=== PATIENT | female | born 1965 | race Caucasian/White ===

== ENCOUNTER 2019-01-16 09:10 | Day surgery (SDC) | payer MEDICARE, MEDICAID ==
[~2019-01-16] VITALS: Ht 165.1 cm; Wt 78.7 kg
[2019-01-16] MEDS ORDERED: LIDOcaine 1% 30ml preserv. free vial SQ STA (09:38)
[2019-01-16] MEDS ORDERED: clonazePAM 0.5mg tablet PO ONE (10:20)
--- NOTE | 2019-01-16 11:00 | NUR ---
LAURO GEORGES PRODUCE FIELD MERCHANDISER ASSESSED FOR PLEURAL FLUID WITH ULTRASOUND. NO FLUID ACCUMULATION WARRANTING DRAINAGE. NO PARACENTESIS PERFORMED. PT DISCHARGED TO HOSPITAL ENTRANCE AND WAS DISCHARGED BACK TO HER FACILITY. PT HAD ALL BELONGINGS.
== END 2019-01-16 11:00 | disposition home or self-care (01) ==
LOC: SSTAY O 09:10
PROVIDERS: ATTEND Radiology Diagnostic Radiology
DX: J90 Pleural effusion, not elsewhere classified (principal); Z53.8 Procedure and treatment not carried out for other reasons; Z88.8 Allergy status to other drugs, medicaments and biological substances
CPT/HCPCS: J3490

== ENCOUNTER 2022-07-23 17:33 | Inpatient (IN) | payer MEDICARE, MEDICAID ==
[~2022-07-23] VITALS: Ht 167.6 cm; Wt 75.0 kg
[2022-07-23] MEDS ORDERED: normal saline 1000ML IV soln IV ONE (19:30)
--- NOTE | 2022-07-23 19:35 | NUR ---
pt has been evaluated by provider, taken to restroom in wheelchair, going to xray now
[2022-07-23 20:18] LABS: LYMPHOCYTES # (AUTO) 0.3 X10'3 (1.1-4.8); MEAN PLATELET VOLUME 8.6 FL (7.4-10.4); MONOCYTES # (AUTO) 0.7 X10'3 (0-0.9)
[2022-07-23 20:20] LABS: BASOPHILS % (AUTO) 0.1 % (0-1); EOSINOPHILS % (AUTO) 0.8 % (0-6); HEMATOCRIT 28.5 % (35.0-45.0); HEMOGLOBIN 9.8 g/dl (12.0-16.0); LYMPHOCYTES % (AUTO) 6.3 % (21-51); MEAN CORPUSCULAR HGB CONC 34.4 g/dL (33.0-36.5); MEAN CORPUSCULAR VOLUME 87.1 FL (78-98); MONOCYTES % (AUTO) 17.7 % (2-12); NEUTROPHILS # (AUTO) 3.1 X10'3 (1.8-7.7); NEUTROPHILS % (AUTO) 75.1 % (42-75); PLATELET COUNT 95 X10'3 (140-440); RED BLOOD COUNT 3.27 X10'6 (4.20-5.60); RED CELL DISTRIBUTION WIDTH 12.7 % (11.5-14.5); WHITE BLOOD COUNT 4.1 X10'3 (4.5-11.0)
[2022-07-23 20:25] LABS: ALANINE AMINOTRANSFERASE 30 U/L (12-78); ALBUMIN 2.6 G/DL (3.4-5.0); ALBUMIN/GLOBULIN RATIO 0.7 (1.1-1.5); ALKALINE PHOSPHATASE 92 IU/L (46-116); ANION GAP 10 (8-16); ASPARTATE AMINO TRANSFERASE 38 U/L (10-37); BILIRUBIN,TOTAL 0.7 MG/DL (0.1-1.0); BLOOD UREA NITROGEN 24 MG/DL (7-18); CALCIUM 8.4 MG/DL (8.5-10.1); CHLORIDE 102 MMOL/L (99-107); GLUCOSE 120 MG/DL (70-104); MAGNESIUM 1.8 MG/DL (1.5-2.4); POTASSIUM 3.3 MMOL/L (3.5-5.1); SODIUM 136 MMOL/L (135-145); TOTAL CARBON DIOXIDE 23.6 MMOL/L (24-32); TOTAL PROTEIN 6.4 G/DL (6.4-8.2); eGFR 36 ML/MIN
[2022-07-23 20:38] LABS: CLARITY,URINE SLIGHTLY CLOUDY (Clear); COLOR,URINE YELLOW (Yellow); GLUCOSE, URINE NEGATIVE (Neg); KETONES,URINE TRACE mg/dl (Neg); LEUKOCYTE ESTERASE ,URINE LARGE (Neg); NITRITES, URINE POSITIVE (Neg); OCCULT BLOOD,URINE SMALL (Neg); PROTEIN,URINE TRACE mg/dl (Neg); UROBILINOGEN,URINE 0.2 E.U/dL (0.2-1.0)
[2022-07-23 20:49] LABS: UA COLLECTION TYPE NON-SPECIFIED
[2022-07-23 20:54] LABS: BACTERIA,URINE 4+ /HPF (Neg); RBC,URINE 0-2 /HPF (0-2); SQUAMOUS EPITHELIAL CELL,UR FEW /LPF (FEW); WBC,URINE TNTC /HPF (0-4)
[2022-07-23 21:10] LABS: TOTAL CELLS COUNTED 100
[2022-07-23 21:11] LABS: PLATELET ESTIMATE DECREASED
[2022-07-23] MEDS ORDERED: CefTRIAXone 2gm/D5W 50ml BAG 50 ML IV ONE (21:20)
[2022-07-23] MEDS ORDERED: mag hydrox/Alum hydrox/simeth 30ml oral suspension PO PRN (22:05)
[2022-07-23] MEDS ORDERED: magnesium 2GM in 50ml NS 50 ML IV PRN (22:05)
[2022-07-23] MEDS ORDERED: magnesium 4gm in 100ml NS 100 ML IV PRN (22:05)
[2022-07-23] MEDS ORDERED: potassium CL 10mEq/100ml bag 100 ML IV PRN (22:05)
[2022-07-23] MEDS ORDERED: POTASSIUM BICARB 20meq eff tab 20 MEQ TABLET.EFF PO PRN (22:05)
[2022-07-23] MEDS ORDERED: magnesium hydroxide 30ml (MOM) UD suspension PO PRN (22:05)
[2022-07-23] MEDS ORDERED: ondansetron/PF 4mg/2ml inj IV PRN (22:05)
[2022-07-23] MEDS ORDERED: magnesium Cl slow-release 64mg tablet PO PRN (22:05)
[2022-07-23] MEDS ORDERED: acetaminophen 325mg tablet PO PRN (22:05)
[2022-07-23] MEDS ORDERED: LEVO100T PO (22:38)
[2022-07-23] MEDS ORDERED: NAPR-56 PO (22:38)
[2022-07-23] MEDS ORDERED: OMEP20CA16 PO (22:38)
[2022-07-23] MEDS ORDERED: PSYL575P22 PO (22:38)
[2022-07-23] MEDS ORDERED: ALBU18HF2 INH (22:38)
[2022-07-23] MEDS ORDERED: GABA-530 PO ×2 (22:38)
[2022-07-23] MEDS ORDERED: RISP2TAB97 PO (22:38)
[2022-07-23] MEDS ORDERED: ACET-890 PO (22:38)
[2022-07-23] MEDS ORDERED: MELO-100 PO (22:38)
[2022-07-23] MEDS ORDERED: FLUO40CA10 PO (22:38)
[2022-07-23] MEDS ORDERED: OLAN5TAB5 PO (22:38)
[2022-07-23] MEDS ORDERED: LAMO100T65 PO ×2 (22:38)
[2022-07-23] MEDS ORDERED: PROP10TA10 PO (22:38)
[2022-07-23] MEDS ORDERED: FLUT16SP2 BOTHNARES (22:38)
[2022-07-23] MEDS ORDERED: TRIH2TAB3 PO (22:38)
[2022-07-23] MEDS ORDERED: MULT-1085 PO (22:38)
[2022-07-24 02:37] VITALS: BP 111/68
[2022-07-24 06:00] VITALS: BP 97/52
[2022-07-24 06:18] LABS: BASOPHILS % (AUTO) 0.3 % (0-1); EOSINOPHILS % (AUTO) 0.2 % (0-6); HEMATOCRIT 29.3 % (35.0-45.0); HEMOGLOBIN 10.1 g/dl (12.0-16.0); LYMPHOCYTES # (AUTO) 0.2 X10'3 (1.1-4.8); LYMPHOCYTES % (AUTO) 3.6 % (21-51); MEAN CORPUSCULAR HEMOGLOBIN 29.9 PG (27.0-31.0); MEAN CORPUSCULAR HGB CONC 34.4 g/dL (33.0-36.5); MEAN CORPUSCULAR VOLUME 86.8 FL (78-98); MEAN PLATELET VOLUME 8.4 FL (7.4-10.4); MONOCYTES # (AUTO) 0.6 X10'3 (0-0.9); MONOCYTES % (AUTO) 12.3 % (2-12); NEUTROPHILS # (AUTO) 4.3 X10'3 (1.8-7.7); NEUTROPHILS % (AUTO) 83.6 % (42-75); PLATELET COUNT 92 X10'3 (140-440); RED BLOOD COUNT 3.38 X10'6 (4.20-5.60); RED CELL DISTRIBUTION WIDTH 13.1 % (11.5-14.5); WHITE BLOOD COUNT 5.2 X10'3 (4.5-11.0)
--- NOTE | 2022-07-24 06:24 | NUR ---
Patient in room ORTHO 4016. I have received report from TIMO Gibson and had the opportunity to ask questions and assume patient care.
[2022-07-24 06:36] LABS: ALANINE AMINOTRANSFERASE 27 U/L (12-78); ALBUMIN 2.3 G/DL (3.4-5.0); ALBUMIN/GLOBULIN RATIO 0.6 (1.1-1.5); ALKALINE PHOSPHATASE 93 IU/L (46-116); ANION GAP 10 (8-16); ASPARTATE AMINO TRANSFERASE 34 U/L (10-37); BILIRUBIN,TOTAL 0.6 MG/DL (0.1-1.0); BLOOD UREA NITROGEN 17 MG/DL (7-18); CHLORIDE 106 MMOL/L (99-107); CREATININE 1.21 MG/DL (0.40-0.90); GLUCOSE 153 MG/DL (70-104); MAGNESIUM 1.8 MG/DL (1.5-2.4); POTASSIUM 3.2 MMOL/L (3.5-5.1); SODIUM 139 MMOL/L (135-145); TOTAL CARBON DIOXIDE 23.1 MMOL/L (24-32); TOTAL PROTEIN 6.1 G/DL (6.4-8.2); eGFR 46 ML/MIN
[2022-07-24] MEDS: K and/or MAG REPLACEMENT MC SCH ×2 (08:00→20:00)
[2022-07-24] MEDS: heparin, porcine 5000 units/ml vial SQ SCH ×2 (08:00→20:41)
[2022-07-24] MEDS: docusate sod 100mg capsule PO SCH ×2 (09:06→20:00)
[2022-07-24] MEDS: POTASSIUM BICARB 20meq eff tab 20 MEQ TABLET.EFF PO PRN ×2 (09:19→15:08)
[2022-07-24 10:00] VITALS: BP 98/61
[2022-07-24] MEDS ORDERED: naproxen 500mg tablet PO PRN (10:30)
[2022-07-24] MEDS: HYDROcodone/acetaminophen 5mg/325mg tablet PO PRN ×2 (10:44→20:39)
[2022-07-24] MEDS: propranolol 10mg tablet PO SCH ×2 (13:00→20:35)
--- NOTE | 2022-07-24 16:57 | NUR ---
PAGER ID: [phone] MESSAGE: Patient in room 4016, Shannen Prince has an order for meloxican 7.5mg which is not stocked in pharmacy. [facility] ([facility]) states patient only takes the medication sometimes. Would you like to DC medication? Alyssa [phone]
--- NOTE | 2022-07-24 16:57 | NUR ---
Per Kasia at [facility] who takes care of patient, we can contact her at [phone] or [phone] if we need information for patient.
[2022-07-24 18:00] VITALS: BP 112/63
--- NOTE | 2022-07-24 18:24 | NUR ---
Problems reprioritized. Patient report given, questions answered & plan of care reviewed with TIMO Gibson.
--- NOTE | 2022-07-24 18:48 | NUR ---
I have reviewed and agree with all interventions, assessments performed, and documention by Alyssa Lopez LVN.
[2022-07-24] MEDS ORDERED: trihexyphenidyl 2mg tablet PO SCH (20:00)
[2022-07-24] MEDS: gabapentin 100mg capsule PO SCH (20:37)
[2022-07-24] MEDS: lamoTRIgine 100mg tablet PO SCH (20:37)
[2022-07-24] MEDS: CefTRIAXone/D5W-Rocephin 1gm 50 ML IV SCH (20:39)
[2022-07-24] MEDS: trihexyphenidyl HCL 5 MG tablet PO SCH (20:39)
[2022-07-24] MEDS: psyllium seed 3.4 gm packet PO SCH (20:42)
[2022-07-24 22:00] VITALS: BP 103/58
--- NOTE | 2022-07-24 22:58 | NUR ---
Student documentation: I have reviewed interventions, assessments performed and documented by Lb Monsalve [facility].
[2022-07-25] MEDS: HYDROcodone/acetaminophen 5mg/325mg tablet PO PRN ×3 (05:51→20:59)
[2022-07-25 06:00] VITALS: BP 111/59
[2022-07-25 06:09] LABS: BASOPHILS % (AUTO) 0.4 % (0-1); EOSINOPHILS # (AUTO) 0.1 X10'3 (0-0.9); EOSINOPHILS % (AUTO) 2.8 % (0-6); HEMATOCRIT 28.7 % (35.0-45.0); HEMOGLOBIN 9.9 g/dl (12.0-16.0); LYMPHOCYTES # (AUTO) 0.4 X10'3 (1.1-4.8); LYMPHOCYTES % (AUTO) 8.2 % (21-51); MEAN CORPUSCULAR HEMOGLOBIN 29.8 PG (27.0-31.0); MEAN CORPUSCULAR HGB CONC 34.5 g/dL (33.0-36.5); MEAN CORPUSCULAR VOLUME 86.3 FL (78-98); MONOCYTES # (AUTO) 0.5 X10'3 (0-0.9); MONOCYTES % (AUTO) 12.1 % (2-12); NEUTROPHILS # (AUTO) 3.3 X10'3 (1.8-7.7); NEUTROPHILS % (AUTO) 76.5 % (42-75); PLATELET COUNT 115 X10'3 (140-440); RED BLOOD COUNT 3.33 X10'6 (4.20-5.60); RED CELL DISTRIBUTION WIDTH 13.8 % (11.5-14.5); WHITE BLOOD COUNT 4.3 X10'3 (4.5-11.0)
[2022-07-25 06:15] LABS: ALANINE AMINOTRANSFERASE 27 U/L (12-78); ALBUMIN/GLOBULIN RATIO 0.5 (1.1-1.5); ALKALINE PHOSPHATASE 99 IU/L (46-116); ANION GAP 11 (8-16); ASPARTATE AMINO TRANSFERASE 33 U/L (10-37); BILIRUBIN,TOTAL 0.5 MG/DL (0.1-1.0); BLOOD UREA NITROGEN 14 MG/DL (7-18); BUN/CREATININE RATIO 13.1 (6.6-38.0); CALCIUM 8.3 MG/DL (8.5-10.1); CHLORIDE 105 MMOL/L (99-107); CREATININE 1.07 MG/DL (0.40-0.90); GLUCOSE 95 MG/DL (70-104); MAGNESIUM 1.8 MG/DL (1.5-2.4); POTASSIUM 3.5 MMOL/L (3.5-5.1); SODIUM 142 MMOL/L (135-145); TOTAL CARBON DIOXIDE 26.1 MMOL/L (24-32); eGFR 53 ML/MIN
--- NOTE | 2022-07-25 06:29 | NUR ---
Patient in room ORTHO 4013. I have received report from TIMO Gibson and had the opportunity to ask questions and assume patient care.
[2022-07-25] MEDS: K and/or MAG REPLACEMENT MC SCH ×2 (08:00→20:00)
[2022-07-25] MEDS ORDERED: pantoprazole 40mg Tablet.DR PO SCH (08:00)
[2022-07-25] MEDS ORDERED: MELOXICAM 7.5 MG PO SCH (08:00)
[2022-07-25] MEDS: docusate sod 100mg capsule PO SCH ×2 (08:00→20:59)
[2022-07-25] MEDS: lamoTRIgine 100mg tablet PO SCH ×2 (08:54→21:00)
[2022-07-25] MEDS: levoTHYROXINE 100mcg tablet PO SCH (08:54)
[2022-07-25] MEDS: trihexyphenidyl HCL 5 MG tablet PO SCH ×2 (08:55→20:56)
[2022-07-25] MEDS: multivitamins, therapeutics tablet PO SCH (08:55)
[2022-07-25] MEDS: FLUoxetine 20mg capsule PO SCH (08:55)
[2022-07-25] MEDS: heparin, porcine 5000 units/ml vial SQ SCH ×2 (08:56→21:11)
[2022-07-25 10:14] VITALS: BP 104/55
[2022-07-25] MEDS: OLANZapine 5mg rapidly disint. tablet PO SCH (10:18)
[2022-07-25] MEDS: gabapentin 100mg capsule PO SCH ×2 (10:18→21:01)
[2022-07-25] MEDS: propranolol 10mg tablet PO SCH ×3 (10:18→21:00)
[2022-07-25] MEDS: risperiDONE 2mg tablet PO SCH (10:18)
--- NOTE | 2022-07-25 17:10 | NUR ---
During pain assessment, patient did not understand pain scale immediately. After explanation, she still did not appear to grasp the scale, stating that her pain was "50/50." Pain scale was explained again and patient stated a 5/10 rating. but was unable to describe the pain.
[2022-07-25 18:00] VITALS: BP 124/73
--- NOTE | 2022-07-25 18:39 | NUR ---
Problems reprioritized. Patient report given, questions answered & plan of care reviewed with Ni Gonzalez RN.
--- NOTE | 2022-07-25 18:40 | NUR ---
Patient in room ORTHO 4013. I have received report from TIMO Shah and had the opportunity to ask questions and assume patient care. Patient is sitting up eating dinner and in no obvious distress. I will continue to monitor.
--- NOTE | 2022-07-25 18:52 | NUR ---
FAMILY NURSE PRACTITIONER documentation: I have reviewed and agree with all interventions, assessments performed and documented by Alyssa GREENWOOD.
[2022-07-25] MEDS: psyllium seed 3.4 gm packet PO SCH (21:01)
[2022-07-25] MEDS: CefTRIAXone/D5W-Rocephin 1gm 50 ML IV SCH (21:17)
--- NOTE | 2022-07-25 21:17 | NUR ---
Medications administered late due to technical difficulties.
[2022-07-25 22:00] VITALS: BP 121/71
--- NOTE | 2022-07-25 23:23 | NUR ---
I have observed Luiza SCOTT administer medications and have reviewed her charting. John Sood RN
[2022-07-26] VITALS (19 sets, daily range): BP systolic 120–168; BP diastolic 72–97
[2022-07-26] MEDS: HYDROcodone/acetaminophen 5mg/325mg tablet PO PRN (05:18)
[2022-07-26 05:58] LABS: BASOPHILS % (AUTO) 0.5 % (0-1); EOSINOPHILS # (AUTO) 0.1 X10'3 (0-0.9); EOSINOPHILS % (AUTO) 3.8 % (0-6); HEMATOCRIT 30.2 % (35.0-45.0); HEMOGLOBIN 10.4 g/dl (12.0-16.0); LYMPHOCYTES # (AUTO) 0.5 X10'3 (1.1-4.8); LYMPHOCYTES % (AUTO) 13.3 % (21-51); MEAN CORPUSCULAR HGB CONC 34.4 g/dL (33.0-36.5); MEAN CORPUSCULAR VOLUME 87.2 FL (78-98); MEAN PLATELET VOLUME 8.1 FL (7.4-10.4); MONOCYTES # (AUTO) 0.4 X10'3 (0-0.9); MONOCYTES % (AUTO) 11.5 % (2-12); NEUTROPHILS # (AUTO) 2.5 X10'3 (1.8-7.7); NEUTROPHILS % (AUTO) 70.9 % (42-75); PLATELET COUNT 136 X10'3 (140-440); RED BLOOD COUNT 3.46 X10'6 (4.20-5.60); RED CELL DISTRIBUTION WIDTH 13.6 % (11.5-14.5); WHITE BLOOD COUNT 3.5 X10'3 (4.5-11.0)
--- NOTE | 2022-07-26 06:22 | NUR ---
Problems reprioritized. Patient report given, questions answered & plan of care reviewed with TIMO Shah.
[2022-07-26 06:31] LABS: ALANINE AMINOTRANSFERASE 25 U/L (12-78); ALBUMIN 2.1 G/DL (3.4-5.0); ALBUMIN/GLOBULIN RATIO 0.5 (1.1-1.5); ALKALINE PHOSPHATASE 105 IU/L (46-116); ANION GAP 10 (8-16); ASPARTATE AMINO TRANSFERASE 31 U/L (10-37); BILIRUBIN,TOTAL 0.5 MG/DL (0.1-1.0); BLOOD UREA NITROGEN 8 MG/DL (7-18); BUN/CREATININE RATIO 7.7 (6.6-38.0); CALCIUM 8.5 MG/DL (8.5-10.1); CHLORIDE 106 MMOL/L (99-107); CREATININE 1.04 MG/DL (0.40-0.90); GLUCOSE 92 MG/DL (70-104); MAGNESIUM 2.1 MG/DL (1.5-2.4); SODIUM 141 MMOL/L (135-145); TOTAL CARBON DIOXIDE 25.3 MMOL/L (24-32); TOTAL PROTEIN 6.2 G/DL (6.4-8.2); eGFR 55 ML/MIN
--- NOTE | 2022-07-26 07:06 | NUR ---
Patient in room ORTHO 4013. I have received report from TIMO Dan and had the opportunity to ask questions and assume patient care.
[2022-07-26] MEDS: gabapentin 100mg capsule PO SCH ×2 (07:30→22:30)
[2022-07-26] MEDS: K and/or MAG REPLACEMENT MC SCH ×2 (08:00→20:00)
[2022-07-26] MEDS: trihexyphenidyl HCL 5 MG tablet PO SCH ×2 (09:24→22:31)
[2022-07-26] MEDS: docusate sod 100mg capsule PO SCH ×2 (09:28→19:47)
[2022-07-26] MEDS: propranolol 10mg tablet PO SCH ×3 (09:28→22:30)
[2022-07-26] MEDS: lamoTRIgine 100mg tablet PO SCH ×2 (09:29→22:30)
[2022-07-26] MEDS: pantoprazole 40mg Tablet.DR PO SCH (09:30)
[2022-07-26] MEDS: FLUoxetine 20mg capsule PO SCH (09:31)
[2022-07-26] MEDS: risperiDONE 2mg tablet PO SCH (09:32)
[2022-07-26] MEDS: levoTHYROXINE 100mcg tablet PO SCH (09:33)
[2022-07-26] MEDS: multivitamins, therapeutics tablet PO SCH (09:34)
[2022-07-26] MEDS: OLANZapine 5mg rapidly disint. tablet PO SCH (09:34)
[2022-07-26] MEDS: heparin, porcine 5000 units/ml vial SQ SCH ×2 (09:36→19:48)
[2022-07-26] MEDS ORDERED: BUPIVAcaine/PF 2.5 mg/ml (0.25%) 30ml vial ONE (12:39)
[2022-07-26] MEDS ORDERED: bacitracin 15gm ointment TP ONE ×2 (12:39→14:34)
[2022-07-26] MEDS ORDERED: ceFAZolin inj. 2,000 MG in dextrose 5%-water 100 ML IV ONE (13:35)
[2022-07-26] MEDS ORDERED: ketorolac trometh. 30mg/ml inj. IV ONE (13:40)
[2022-07-26] MEDS ORDERED: ringers solution, lacted 1,000 ML IV SCH (13:40)
[2022-07-26] MEDS ORDERED: ondansetron/PF 4mg/2ml inj IV PRN ×2 (13:40→15:00)
[2022-07-26] MEDS ORDERED: meperidine/PF 25mg/ml syringe IV PRN (13:40)
[2022-07-26] MEDS ORDERED: morphine 2 MG/ML inj. syringe IV PRN (13:40)
[2022-07-26] MEDS ORDERED: morphine 4 MG/ML inj SYRINge IV PRN (13:40)
[2022-07-26] MEDS ORDERED: acetaminophen 1,000mg/100ml IV 100 ML IV PRN (13:40)
[2022-07-26] MEDS ORDERED: fentaNYL/PF 50MCG/1 ML 2ML syringe IV PRN ×2 (13:40)
[2022-07-26] MEDS ORDERED: fentaNYL/PF 50MCG/1 ML 2ML syringe ONE (13:59)
[2022-07-26] MEDS ORDERED: midazolam 1 mg/ML 2ml injection ONE (13:59)
[2022-07-26] MEDS ORDERED: ceFAZolin 1000mg inj ONE ×2 (14:22)
[2022-07-26] MEDS ORDERED: LIDOcaine 2% (20mg/ml) 5ml vial ONE (14:23)
[2022-07-26] MEDS ORDERED: ROPIVAcaine 0.5% (5mg/ml) 30ml vial ONE (14:23)
[2022-07-26] MEDS ORDERED: propofol inj 20 ML IV ONE (14:23)
[2022-07-26] MEDS ORDERED: dexamethasone sod phosphate 4mg/ml inj. ONE (14:23)
[2022-07-26] MEDS ORDERED: ondansetron/PF 4mg/2ml inj ONE (14:56)
[2022-07-26] MEDS ORDERED: acetaminophen 325mg tablet PO PRN (15:00)
[2022-07-26] MEDS ORDERED: diphenhydrAMINE 25mg capsule PO PRN ×2 (15:00)
[2022-07-26] MEDS ORDERED: magnesium hydroxide 30ml (MOM) UD suspension PO PRN (15:00)
[2022-07-26] MEDS ORDERED: bisacodyl 10mg suppository rectal RC PRN (15:00)
[2022-07-26] MEDS ORDERED: naloxone 0.4 mg/ml inj IV PRN (15:00)
--- NOTE | 2022-07-26 15:20 | NUR ---
Received from OR via HOSPITAL BED, accompanied by Anesthesiologist DR QUEZADA and report given by Anesthesiolgist. PT IS GROGGY BUT RESPONDS TO VERBAL STIMULI. PT PLACED ON BEDSIDE MONITOR, VSS. PT IN SR WITH RATE IN 60'S. BP IS 130'S/70'S. PT HAS DRSG/SPLINT WITH ELIZABETH WRAP TO LT FOOT/ANKLE AND LEG IS ELEVATED. PT HAS 20G PIV TO RT AC ANND 20G PIV TO RT HAND WITH LR INFUSING TO PIV IN RT HAND AT 100ML/HR. PT RESTING COMFORTABLY AT THIS TIME WITH NO S/S OF DISTRESS NOTED AT THIS TIME, WILL CONTINUE TO ASSESS.
--- NOTE | 2022-07-26 17:10 | NUR ---
PATIENT HAS MET ALL CRITERIA FOR TRANSFER TO THE ORTHO FLOOR. VSS. DRESSINGS INTACT. BED LOW, CALL LIGHT PRESENT AND 2 RAILS UP. RN PRESENT TO ACCEPT CARE OF PATIENT AND REPORT HAS BEEN CALLED TO ELENI GREENWOOD. ALL QUESTIONS ANSWERED TO ACCEPTING RN.
--- NOTE | 2022-07-26 17:44 | NUR ---
Patient return to ortho floor at approximately 1720 from recovery. Awake and has a soft cast splint to left lower extremity and denies pain.
--- NOTE | 2022-07-26 18:00 | NUR ---
WAREHOUSEMAN documentation: I have reviewed and agree with all interventions, assessments performed and documented by Alyssa Vance LVN.
--- NOTE | 2022-07-26 18:30 | NUR ---
Patient in room ORTHO 4010. I have received report from Alyssa GREENWOOD and had the opportunity to ask questions and assume patient care. Addendum: 07/26/22 at 1847 by Diane Stevens RN Amended: Links added.
--- NOTE | 2022-07-26 18:48 | NUR ---
Problems reprioritized. Patient report given, questions answered & plan of care reviewed with TIMO Contreras.
[2022-07-26] MEDS: normal saline 1000ml 1,000 ML IV SCH ×2 (19:46→20:15)
[2022-07-26] MEDS: HYDROcodone/acetaminophen 10/325mg tab PO PRN (20:12)
[2022-07-26] MEDS: sennosides 8.6mg tablet PO SCH (21:00)
[2022-07-26] MEDS: psyllium seed 3.4 gm packet PO SCH (22:29)
[2022-07-26] MEDS: CefTRIAXone/D5W-Rocephin 1gm 50 ML IV SCH (22:29)
[2022-07-26] MEDS: potassium cl 20mEq in 1/2 NS 1,000 ML IV SCH (22:51)
[2022-07-27 02:00] VITALS: BP 122/75
[2022-07-27] MEDS: normal saline 1000ml 1,000 ML IV SCH ×2 (02:55→10:14)
[2022-07-27] MEDS: HYDROcodone/acetaminophen 10/325mg tab PO PRN ×3 (05:53→23:14)
[2022-07-27 06:00] VITALS: BP 157/85
[2022-07-27] MEDS: potassium cl 20mEq in 1/2 NS 1,000 ML IV SCH ×3 (06:32→19:32)
--- NOTE | 2022-07-27 06:40 | NUR ---
Problems reprioritized. Patient report given, questions answered & plan of care reviewed with Buffy GREENWOOD. Addendum: 07/27/22 at 0722 by Diane Stevens RN Amended: Links added.
[2022-07-27] MEDS: gabapentin 100mg capsule PO SCH ×2 (07:30→21:43)
[2022-07-27] MEDS: FLUoxetine 20mg capsule PO SCH (08:00)
[2022-07-27] MEDS: pantoprazole 40mg Tablet.DR PO SCH (08:00)
[2022-07-27] MEDS: trihexyphenidyl HCL 5 MG tablet PO SCH ×2 (08:00→21:40)
[2022-07-27] MEDS: propranolol 10mg tablet PO SCH ×3 (08:00→21:00)
[2022-07-27] MEDS: risperiDONE 2mg tablet PO SCH (08:00)
[2022-07-27] MEDS: heparin, porcine 5000 units/ml vial SQ SCH ×2 (08:00→21:30)
[2022-07-27] MEDS: levoTHYROXINE 100mcg tablet PO SCH (08:00)
[2022-07-27] MEDS: docusate sod 100mg capsule PO SCH ×2 (08:00→20:00)
[2022-07-27] MEDS: OLANZapine 5mg rapidly disint. tablet PO SCH (08:00)
[2022-07-27] MEDS: multivitamins, therapeutics tablet PO SCH (08:00)
[2022-07-27] MEDS: lamoTRIgine 100mg tablet PO SCH ×2 (08:00→21:42)
[2022-07-27] MEDS: K and/or MAG REPLACEMENT MC SCH ×2 (08:00→20:00)
[2022-07-27 09:26] LABS: BASOPHILS % (AUTO) 0.2 % (0-1); EOSINOPHILS % (AUTO) 0.1 % (0-6); HEMATOCRIT 33.1 % (35.0-45.0); HEMOGLOBIN 11.2 g/dl (12.0-16.0); LYMPHOCYTES # (AUTO) 0.6 X10'3 (1.1-4.8); MEAN CORPUSCULAR HEMOGLOBIN 29.7 PG (27.0-31.0); MEAN CORPUSCULAR VOLUME 87.3 FL (78-98); MEAN PLATELET VOLUME 8.1 FL (7.4-10.4); MONOCYTES # (AUTO) 0.5 X10'3 (0-0.9); MONOCYTES % (AUTO) 6.3 % (2-12); NEUTROPHILS # (AUTO) 6.5 X10'3 (1.8-7.7); NEUTROPHILS % (AUTO) 85.4 % (42-75); PLATELET COUNT 211 X10'3 (140-440); RED BLOOD COUNT 3.79 X10'6 (4.20-5.60); RED CELL DISTRIBUTION WIDTH 13.5 % (11.5-14.5); WHITE BLOOD COUNT 7.6 X10'3 (4.5-11.0)
[2022-07-27 09:48] LABS: ALANINE AMINOTRANSFERASE 23 U/L (12-78); ALBUMIN 2.3 G/DL (3.4-5.0); ALBUMIN/GLOBULIN RATIO 0.5 (1.1-1.5); ALKALINE PHOSPHATASE 119 IU/L (46-116); ANION GAP 10 (8-16); ASPARTATE AMINO TRANSFERASE 27 U/L (10-37); BILIRUBIN,TOTAL 0.4 MG/DL (0.1-1.0); BLOOD UREA NITROGEN 12 MG/DL (7-18); BUN/CREATININE RATIO 11.5 (6.6-38.0); CALCIUM 8.8 MG/DL (8.5-10.1); CHLORIDE 104 MMOL/L (99-107); CREATININE 1.04 MG/DL (0.40-0.90); GLUCOSE 101 MG/DL (70-104); MAGNESIUM 2.1 MG/DL (1.5-2.4); POTASSIUM 4.4 MMOL/L (3.5-5.1); SODIUM 141 MMOL/L (135-145); TOTAL CARBON DIOXIDE 27.1 MMOL/L (24-32); TOTAL PROTEIN 7.1 G/DL (6.4-8.2); eGFR 55 ML/MIN
[2022-07-27 10:00] VITALS: BP 126/76
--- NOTE | 2022-07-27 11:30 | NUR ---
Patient in room ORTHO 4013. I have received report from Buffy and had the opportunity to ask questions and assume patient care.
--- NOTE | 2022-07-27 11:32 | NUR ---
Gave report to Nanette GREENWOOD.
[2022-07-27 18:00] VITALS: BP 130/69
--- NOTE | 2022-07-27 18:23 | NUR ---
Problems reprioritized. Patient report given, questions answered & plan of care reviewed with Ale Olivares LVN.
[2022-07-27] MEDS: sennosides 8.6mg tablet PO SCH (21:00)
[2022-07-27] MEDS: psyllium seed 3.4 gm packet PO SCH (21:00)
[2022-07-27 22:00] VITALS: BP 140/83
[2022-07-27] MEDS: CefTRIAXone/D5W-Rocephin 1gm 50 ML IV SCH (22:08)
[2022-07-28] MEDS: HYDROcodone/acetaminophen 10/325mg tab PO PRN ×3 (03:29→14:23)
--- NOTE | 2022-07-28 04:29 | NUR ---
REVIEWED PATIENT ASSMT DONE BY MALINDA DONOVAN AND AGREE WITH HER ASSMT.
[2022-07-28 06:00] VITALS: BP 151/95
--- NOTE | 2022-07-28 06:29 | NUR ---
Problems reprioritized. Patient report given, questions answered & plan of care reviewed with TIMO Rangel.
--- NOTE | 2022-07-28 06:42 | NUR ---
Patient in room ORTHO 4013. I have received report from VENUS Aguilera and had the opportunity to ask questions and assume patient care.
[2022-07-28 07:04] LABS: BASOPHILS % (AUTO) 0.6 % (0-1); EOSINOPHILS # (AUTO) 0.1 X10'3 (0-0.9); EOSINOPHILS % (AUTO) 3.1 % (0-6); HEMATOCRIT 29.7 % (35.0-45.0); HEMOGLOBIN 10.3 g/dl (12.0-16.0); LYMPHOCYTES # (AUTO) 0.8 X10'3 (1.1-4.8); LYMPHOCYTES % (AUTO) 17.7 % (21-51); MEAN CORPUSCULAR HGB CONC 34.8 g/dL (33.0-36.5); MEAN CORPUSCULAR VOLUME 86.3 FL (78-98); MEAN PLATELET VOLUME 7.1 FL (7.4-10.4); MONOCYTES # (AUTO) 0.4 X10'3 (0-0.9); MONOCYTES % (AUTO) 8.6 % (2-12); NEUTROPHILS # (AUTO) 3.1 X10'3 (1.8-7.7); PLATELET COUNT 195 X10'3 (140-440); RED BLOOD COUNT 3.44 X10'6 (4.20-5.60); RED CELL DISTRIBUTION WIDTH 13.7 % (11.5-14.5); WHITE BLOOD COUNT 4.5 X10'3 (4.5-11.0)
[2022-07-28 07:25] LABS: ALANINE AMINOTRANSFERASE 28 U/L (12-78); ALBUMIN 2.2 G/DL (3.4-5.0); ALBUMIN/GLOBULIN RATIO 0.5 (1.1-1.5); ALKALINE PHOSPHATASE 97 IU/L (46-116); ANION GAP 9 (8-16); ASPARTATE AMINO TRANSFERASE 29 U/L (10-37); BILIRUBIN,TOTAL 0.3 MG/DL (0.1-1.0); BLOOD UREA NITROGEN 6 MG/DL (7-18); BUN/CREATININE RATIO 5.9 (6.6-38.0); CALCIUM 8.5 MG/DL (8.5-10.1); CHLORIDE 108 MMOL/L (99-107); CREATININE 1.01 MG/DL (0.40-0.90); GLUCOSE 88 MG/DL (70-104); POTASSIUM 4.7 MMOL/L (3.5-5.1); SODIUM 144 MMOL/L (135-145); TOTAL CARBON DIOXIDE 27.5 MMOL/L (24-32); TOTAL PROTEIN 6.4 G/DL (6.4-8.2); eGFR 57 ML/MIN
[2022-07-28 07:46] LABS: PLATELET ESTIMATE NORMAL; TOTAL CELLS COUNTED 100
[2022-07-28] MEDS: FLUoxetine 20mg capsule PO SCH (07:51)
[2022-07-28] MEDS: gabapentin 100mg capsule PO SCH (07:51)
[2022-07-28] MEDS: propranolol 10mg tablet PO SCH ×2 (07:51→14:15)
[2022-07-28] MEDS: pantoprazole 40mg Tablet.DR PO SCH (07:51)
[2022-07-28] MEDS: trihexyphenidyl HCL 5 MG tablet PO SCH (07:51)
[2022-07-28] MEDS: levoTHYROXINE 100mcg tablet PO SCH (07:51)
[2022-07-28] MEDS: multivitamins, therapeutics tablet PO SCH (07:51)
[2022-07-28] MEDS: lamoTRIgine 100mg tablet PO SCH (07:51)
[2022-07-28] MEDS: risperiDONE 2mg tablet PO SCH (07:51)
[2022-07-28] MEDS: heparin, porcine 5000 units/ml vial SQ SCH (07:52)
[2022-07-28] MEDS: docusate sod 100mg capsule PO SCH (08:00)
[2022-07-28] MEDS: K and/or MAG REPLACEMENT MC SCH (08:00)
[2022-07-28] MEDS: OLANZapine 5mg rapidly disint. tablet PO SCH (08:03)
--- NOTE | 2022-07-28 08:33 | NUR ---
Initial: Pt admitted w/ L fibular fracture and acute encephalopathy likely metabolic related to UTI per EMR, underwent ORIF of L ankle 07/26. Currently on regular diet w/ avg intake 50% of meals though up to 100% last 2 meals. If PO trends continue then no nutrition intervention needed. LBM 07/25 receiving multiple bowel care meds though pt sometimes refuses. Will continue to monitor. Recs: 1. Continue regular diet as tolerated 2. Monitor need for ONS 3. Bowel care per rx 4. Scaled wts Addendum: 07/28/22 at [address] Amended: Links added.
[2022-07-28 10:00] VITALS: BP 124/70
--- NOTE | 2022-07-28 15:09 | NUR ---
Pt discharged to [facility] with all belongings. Report called to Miguel Angel. Pt transported by [facility] via gurney. IV's DC'd, cannulas intact.
== END 2022-07-28 15:00 | DRG 492 ==
LOC: ER 17:33 → ED HOLD 22:07 → ORTHO 4S 07-24 02:10
PROVIDERS: ADMIT Internal Medicine; ATTEND Internal Medicine
PROC: 2W3TX1Z Immobilization of Left Foot using Splint (ICD-10-PCS; 2022-07-23)
PROC: 0YQL0ZZ Repair Left Ankle Region, Open Approach (ICD-10-PCS; 2022-07-26)
PROC: 3E0T3BZ Introduction of Anesthetic Agent into Peripheral Nerves and Plexi, Percutaneous Approach (ICD-10-PCS; 2022-07-26)
PROC: 3E0T33Z Introduction of Anti-inflammatory into Peripheral Nerves and Plexi, Percutaneous Approach (ICD-10-PCS; 2022-07-26)
PROC: 0QSK04Z Reposition Left Fibula with Internal Fixation Device, Open Approach (ICD-10-PCS; principal; 2022-07-26 13:47)
DX: S82.402A Unspecified fracture of shaft of left fibula, initial encounter for closed fracture (principal); G93.41 Metabolic encephalopathy; N17.0 Acute kidney failure with tubular necrosis; N39.0 Urinary tract infection, site not specified; S93.05XA Dislocation of left ankle joint, initial encounter; N18.30 Chronic kidney disease, stage 3 unspecified; R29.6 Repeated falls; W18.39XA Other fall on same level, initial encounter; D64.9 Anemia, unspecified; B96.20 Unspecified Escherichia coli [E. coli] as the cause of diseases classified elsewhere; M19.90 Unspecified osteoarthritis, unspecified site; E03.9 Hypothyroidism, unspecified; Z79.890 Hormone replacement therapy; Z88.8 Allergy status to other drugs, medicaments and biological substances; Y93.89 Activity, other specified; Y92.89 Other specified places as the place of occurrence of the external cause; Y99.8 Other external cause status
CPT/HCPCS: 36415; 70450; 73600; 73610; 76000; 80053; 81001; 82948; 83735; 84132; 84145; 84443; 85007; 85025; 87077; 87081; 87088; 87186; 87635; 87811; 93005; 97162; 97530; 99285; A4615; A4618; A6223; A6253; A6446; A6449; A7000; C1713; G0378; J0690; J0696; J1100; J1644; J2250; J2405; J2704; J2795; J3010; J3480; J3490; J7030; J7120

== ENCOUNTER 2023-10-07 15:48 | Inpatient (IN) | payer MEDICARE, MEDICAID ==
[~2023-10-07] VITALS: Ht 167.6 cm; Wt 77.9 kg
[~2023-10-07 15:48] MED LIST: ACET-890 PO; ALBU18HF2 INH; FLUO40CA10 PO; FLUT16SP2 BOTHNARES; GABA-530 PO; LAMO100T65 PO; LEVO100T PO; MELO-100 PO; MULT-1085 PO; NAPR-56 PO; OLAN5TAB5 PO; OMEP20CA16 PO; PROP10TA10 PO; PSYL575P22 PO; RISP2TAB97 PO; TRIH2TAB3 PO
[2023-10-07 18:08] LABS: BASOPHILS % (AUTO) 0.3 % (0-1); EOSINOPHILS % (AUTO) 0.3 % (0-6); HEMATOCRIT 29.1 % (35.0-45.0); HEMOGLOBIN 9.9 g/dl (12.0-16.0); LYMPHOCYTES # (AUTO) 0.3 X10'3 (1.1-4.8); LYMPHOCYTES % (AUTO) 3.6 % (21-51); MEAN CORPUSCULAR HEMOGLOBIN 30.2 PG (27.0-31.0); MEAN CORPUSCULAR HGB CONC 34.1 g/dL (33.0-36.5); MEAN CORPUSCULAR VOLUME 88.6 FL (78-98); MONOCYTES # (AUTO) 0.6 X10'3 (0-0.9); MONOCYTES % (AUTO) 7.9 % (2-12); NEUTROPHILS # (AUTO) 6.6 X10'3 (1.8-7.7); NEUTROPHILS % (AUTO) 87.9 % (42-75); PLATELET COUNT 163 X10'3 (140-440); RED BLOOD COUNT 3.28 X10'6 (4.20-5.60); WHITE BLOOD COUNT 7.4 X10'3 (4.5-11.0)
[2023-10-07 18:25] LABS: ALANINE AMINOTRANSFERASE 24 U/L (12-78); ALBUMIN 2.4 G/DL (3.4-5.0); ALBUMIN/GLOBULIN RATIO 0.5 (1.1-1.5); ALKALINE PHOSPHATASE 196 IU/L (46-116); ANION GAP 8 (8-16); ASPARTATE AMINO TRANSFERASE 35 U/L (10-37); BILIRUBIN,TOTAL 0.7 MG/DL (0.1-1.0); BLOOD UREA NITROGEN 34 MG/DL (7-18); BUN/CREATININE RATIO 15.5 (10.0-20.0); CALCIUM 8.6 MG/DL (8.5-10.1); CHLORIDE 94 MMOL/L (99-107); GLUCOSE 92 MG/DL (70-104); POTASSIUM 4.3 MMOL/L (3.5-5.1); SODIUM 126 MMOL/L (135-145); TOTAL CARBON DIOXIDE 23.7 MMOL/L (24-32); TOTAL PROTEIN 6.9 G/DL (6.4-8.2); eCRCL 26 ML/MIN; eGFR 23 ML/MIN
[2023-10-07] MEDS ORDERED: morphine 4 MG/ML inj SYRINge IV ONE (18:25)
[2023-10-07] MEDS ORDERED: ondansetron/PF 4mg/2ml inj IV ONE (18:25)
[2023-10-07] MEDS ORDERED: acetaminophen 325mg tablet PO STA (18:38)
[2023-10-07] MEDS ORDERED: CefTRIAXone 2gm/D5W 50ml BAG 50 ML IV ONE (19:00)
[2023-10-07] MEDS ORDERED: VANCOMYCIN 750MG IV in NS 250 ML IV ONE (19:05)
[2023-10-07] MEDS ORDERED: normal saline 1000ML IV soln IV ONE (19:25)
[2023-10-07 21:09] LABS: BILIRUBIN,URINE SMALL (Neg); CLARITY,URINE SLIGHTLY CLOUDY (Clear); GLUCOSE, URINE NEGATIVE (Neg); KETONES,URINE TRACE mg/dl (Neg); LEUKOCYTE ESTERASE ,URINE NEGATIVE (Neg); NITRITES, URINE NEGATIVE (Neg); OCCULT BLOOD,URINE NEGATIVE (Neg); PH,URINE 5.5 (4.8-8.0); PROTEIN,URINE TRACE mg/dl (Neg)
[2023-10-07 21:18] LABS: COLOR,URINE DARK YELLOW (Yellow); UA COLLECTION TYPE STRAIGHT CATH
[2023-10-07 21:21] LABS: AMORPHOUS URATES 1+; BACTERIA,URINE 2+ /HPF (Neg); COARSE GRANULAR CAST 0-3 /LPF (NEGATIVE); FINE GRANULAR CAST 0-3 /LPF (NEGATIVE); RBC,URINE 0-2 /HPF (0-2); SQUAMOUS EPITHELIAL CELL,UR FEW /LPF (FEW); TRANSITIONAL EPI CELLS,URINE FEW /HPF
[2023-10-07] MEDS ORDERED: magnesium 4gm in 100ml NS 100 ML IV PRN (21:45)
[2023-10-07] MEDS ORDERED: acetaminophen 325mg tablet PO PRN (21:45)
[2023-10-07] MEDS ORDERED: magnesium Cl slow-release 64mg tablet PO PRN (21:45)
[2023-10-07] MEDS ORDERED: magnesium 2GM in 50ml NS 50 ML IV PRN (21:45)
[2023-10-07] MEDS ORDERED: potassium Cl 20 mEq SR tablet PO PRN ×2 (21:45)
[2023-10-07] MEDS ORDERED: mag hydrox/Alum hydrox/simeth 30ml oral suspension PO PRN (21:45)
[2023-10-07] MEDS ORDERED: magnesium hydroxide 30ml (MOM) UD suspension PO PRN (21:45)
[2023-10-07] MEDS ORDERED: ondansetron/PF 4mg/2ml inj IV PRN (21:45)
[2023-10-07] MEDS ORDERED: potassium Cl 40MEQ/1/2NS 520ml 520 ML IV PRN (21:45)
[2023-10-07] MEDS ORDERED: HYDROcodone/acetaminophen 5mg/325mg tablet PO PRN (21:45)
[2023-10-07] MEDS: normal saline 1000ml 1,000 ML IV SCH (21:56)
[2023-10-07] MEDS ORDERED: VANCOMYCIN 750MG IV in NS 250 ML IV SCH (22:30)
[2023-10-08] VITALS (7 sets, daily range): BP systolic 90–113; BP diastolic 47–72; PULSE 58–90; RESP 16–22; TEMP 97–99.8; O2SAT 93–98
[2023-10-08] MEDS ORDERED: HYDR-3973 PO (03:21)
[2023-10-08] MEDS ORDERED: LAMO100T2 PO (03:21)
[2023-10-08] MEDS ORDERED: OMEP20CA16 PO (03:21)
[2023-10-08] MEDS ORDERED: DICL20GE TOP (03:21)
[2023-10-08] MEDS ORDERED: HYDR-3965 PO (03:21)
[2023-10-08] MEDS ORDERED: SULF1TAB49 PO (03:21)
[2023-10-08] MEDS ORDERED: BISA10SU60 RC (03:30)
[2023-10-08] MEDS ORDERED: MAGN24002 PO (03:30)
[2023-10-08] MEDS ORDERED: NA P133E4 RC (03:30)
[2023-10-08] MEDS: K and/or MAG REPLACEMENT MC SCH ×2 (08:00→20:00)
[2023-10-08] MEDS: docusate sod 100mg capsule PO SCH ×2 (08:18→20:29)
[2023-10-08] MEDS: FLUoxetine 20mg capsule PO SCH (08:18)
[2023-10-08] MEDS: pantoprazole 40mg Tablet.DR PO SCH (08:18)
[2023-10-08] MEDS: levoTHYROXINE 100mcg tablet PO SCH (08:19)
[2023-10-08] MEDS: propranolol 10mg tablet PO SCH ×3 (08:20→20:34)
[2023-10-08] MEDS: lamoTRIgine 100mg tablet PO SCH ×2 (08:20→20:29)
[2023-10-08] MEDS: trihexyphenidyl HCL 5 MG tablet PO SCH ×2 (08:21→20:41)
[2023-10-08] MEDS: OLANZapine 5mg rapidly disint. tablet PO SCH (08:21)
[2023-10-08] MEDS: risperiDONE 2mg tablet PO SCH ×3 (08:21→20:29)
[2023-10-08] MEDS: gabapentin 100mg capsule PO SCH ×2 (08:21→20:29)
[2023-10-08] MEDS: CefTRIAXone/D5W-Rocephin 1gm 50 ML IV SCH (08:22)
--- NOTE | 2023-10-08 08:34 | NUR ---
PAGER ID: [phone] MESSAGE: TIMO VASQUEZ, PCU, [id number]. RE: [id number]. POSSITIVE BLOOD CULTURE G+ COCCI/CLUSTERS
[2023-10-08 08:56] LABS: BASOPHILS % (AUTO) 0.3 % (0-1); EOSINOPHILS % (AUTO) 0.4 % (0-6); HEMATOCRIT 28.7 % (35.0-45.0); HEMOGLOBIN 9.8 g/dl (12.0-16.0); LYMPHOCYTES # (AUTO) 0.2 X10'3 (1.1-4.8); LYMPHOCYTES % (AUTO) 3.5 % (21-51); MEAN CORPUSCULAR HEMOGLOBIN 30.3 PG (27.0-31.0); MEAN CORPUSCULAR HGB CONC 34.3 g/dL (33.0-36.5); MEAN CORPUSCULAR VOLUME 88.5 FL (78-98); MEAN PLATELET VOLUME 7.8 FL (7.4-10.4); MONOCYTES # (AUTO) 0.3 X10'3 (0-0.9); MONOCYTES % (AUTO) 6.5 % (2-12); NEUTROPHILS # (AUTO) 4.7 X10'3 (1.8-7.7); NEUTROPHILS % (AUTO) 89.3 % (42-75); PLATELET COUNT 176 X10'3 (140-440); RED BLOOD COUNT 3.24 X10'6 (4.20-5.60); RED CELL DISTRIBUTION WIDTH 13.2 % (11.5-14.5); WHITE BLOOD COUNT 5.2 X10'3 (4.5-11.0)
[2023-10-08 09:25] LABS: ALANINE AMINOTRANSFERASE 28 U/L (12-78); ALBUMIN 2.2 G/DL (3.4-5.0); ALBUMIN/GLOBULIN RATIO 0.5 (1.1-1.5); ALKALINE PHOSPHATASE 189 IU/L (46-116); ANION GAP 12 (8-16); ASPARTATE AMINO TRANSFERASE 34 U/L (10-37); BILIRUBIN,TOTAL 0.6 MG/DL (0.1-1.0); BLOOD UREA NITROGEN 22 MG/DL (7-18); BUN/CREATININE RATIO 14.7 (10.0-20.0); CALCIUM 8.7 MG/DL (8.5-10.1); CHLORIDE 99 MMOL/L (99-107); GLUCOSE 77 MG/DL (70-104); MAGNESIUM 1.7 MG/DL (1.5-2.4); POTASSIUM 4.1 MMOL/L (3.5-5.1); SODIUM 132 MMOL/L (135-145); TOTAL CARBON DIOXIDE 21.1 MMOL/L (24-32); TOTAL PROTEIN 6.5 G/DL (6.4-8.2); eCRCL 39 ML/MIN; eGFR 36 ML/MIN
--- NOTE | 2023-10-08 09:30 | NUR ---
PAGER ID: [phone] MESSAGE: TIMO VASQUEZ, PCU, [id number]. RE: [id number]. 2ND BOTTLE RIGHT ARM POSSITIVE BLOOD CULTURE GRAM + COCCI/ CLUSTERS. FYI
[2023-10-08] MEDS: HYDROcodone/acetaminophen 10/325mg tab PO PRN ×2 (12:37→16:36)
--- NOTE | 2023-10-08 18:28 | NUR ---
Problems reprioritized. Patient report given to ALICIA GREENWOOD, questions answered & plan of care reviewed with .
[2023-10-08] MEDS ORDERED: VANCOMYCIN 750MG IV in NS 250 ML IV SCH (21:00)
[2023-10-09] VITALS (7 sets, daily range): BP systolic 128–155; BP diastolic 60–80; PULSE 75–84; RESP 16–20; TEMP 97.6–100.1; O2SAT 94–98
[2023-10-09] MEDS: HYDROcodone/acetaminophen 10/325mg tab PO PRN ×2 (05:31→14:53)
--- NOTE | 2023-10-09 06:39 | NUR ---
Problems reprioritized. Patient report given, questions answered & plan of care reviewed with TIMO POE.
[2023-10-09 07:23] LABS: BASOPHILS % (AUTO) 0.3 % (0-1); EOSINOPHILS # (AUTO) 0.1 X10'3 (0-0.9); EOSINOPHILS % (AUTO) 1.8 % (0-6); HEMATOCRIT 27.5 % (35.0-45.0); HEMOGLOBIN 9.3 g/dl (12.0-16.0); LYMPHOCYTES # (AUTO) 0.3 X10'3 (1.1-4.8); MEAN CORPUSCULAR HEMOGLOBIN 29.9 PG (27.0-31.0); MEAN CORPUSCULAR HGB CONC 33.8 g/dL (33.0-36.5); MEAN CORPUSCULAR VOLUME 88.5 FL (78-98); MEAN PLATELET VOLUME 7.6 FL (7.4-10.4); MONOCYTES # (AUTO) 0.5 X10'3 (0-0.9); MONOCYTES % (AUTO) 10.4 % (2-12); NEUTROPHILS # (AUTO) 3.9 X10'3 (1.8-7.7); NEUTROPHILS % (AUTO) 80.5 % (42-75); PLATELET COUNT 193 X10'3 (140-440); RED CELL DISTRIBUTION WIDTH 13.5 % (11.5-14.5); WHITE BLOOD COUNT 4.8 X10'3 (4.5-11.0)
[2023-10-09 07:46] LABS: % IRON SATURATION 9 % (11-46); IRON 12 UG/DL (49-151); TOTAL IRON BINDING CAPACITY 133 UG/DL (259-388)
[2023-10-09 07:57] LABS: ALANINE AMINOTRANSFERASE 25 U/L (12-78); ALBUMIN/GLOBULIN RATIO 0.5 (1.1-1.5); ALKALINE PHOSPHATASE 183 IU/L (46-116); ANION GAP 11 (8-16); ASPARTATE AMINO TRANSFERASE 28 U/L (10-37); BILIRUBIN,TOTAL 0.4 MG/DL (0.1-1.0); BLOOD UREA NITROGEN 14 MG/DL (7-18); BUN/CREATININE RATIO 14.1 (10.0-20.0); CALCIUM 8.8 MG/DL (8.5-10.1); CHLORIDE 98 MMOL/L (99-107); CREATININE 0.99 MG/DL (0.40-0.90); FERRITIN 592 NG/ML (8-252); GLUCOSE 88 MG/DL (70-104); MAGNESIUM 1.8 MG/DL (1.5-2.4); POTASSIUM 4.3 MMOL/L (3.5-5.1); SODIUM 129 MMOL/L (135-145); TOTAL CARBON DIOXIDE 19.9 MMOL/L (24-32); TOTAL PROTEIN 6.4 G/DL (6.4-8.2); eCRCL 59 ML/MIN; eGFR 58 ML/MIN
[2023-10-09] MEDS: K and/or MAG REPLACEMENT MC SCH ×2 (10:27→20:00)
[2023-10-09] MEDS: FLUoxetine 20mg capsule PO SCH (10:42)
[2023-10-09] MEDS: propranolol 10mg tablet PO SCH ×3 (10:42→22:18)
[2023-10-09] MEDS: lamoTRIgine 100mg tablet PO SCH ×2 (10:42→22:17)
[2023-10-09] MEDS: docusate sod 100mg capsule PO SCH ×2 (10:42→22:17)
[2023-10-09] MEDS: risperiDONE 2mg tablet PO SCH ×3 (10:42→22:18)
[2023-10-09] MEDS: gabapentin 100mg capsule PO SCH ×2 (10:43→22:18)
[2023-10-09] MEDS: CefTRIAXone/D5W-Rocephin 1gm 50 ML IV SCH (10:44)
[2023-10-09] MEDS: heparin, porcine 5000 units/ml vial SQ SCH ×2 (10:44→22:17)
[2023-10-09] MEDS: vancomycin/NS 1 GM ADD-VANTAGE 250 ML IV SCH ×2 (10:49→23:29)
[2023-10-09] MEDS: pantoprazole 40mg Tablet.DR PO SCH (10:49)
[2023-10-09] MEDS: trihexyphenidyl HCL 5 MG tablet PO SCH ×2 (10:49→22:17)
[2023-10-09] MEDS: OLANZapine 5mg rapidly disint. tablet PO SCH (10:49)
[2023-10-09] MEDS: levoTHYROXINE 100mcg tablet PO SCH (10:49)
--- NOTE | 2023-10-09 14:12 | NUR ---
PRESSURE ULCER EDUCATION: DEFINITION: A pressure ulcer is an area of skin that breaks down when you stay in one position too long. The constant pressure against the skin reduces the blood flow to that area and the affected tissue dies. CAUSES: "Being bedridden or in a wheelchair "Fragile skin "Having a chronic condition, such as diabetes or vascular disease "Inability to move certain parts of your body without assistance "Older age "Incontinence of urine or stool SYMPTOMS: "A reddened area that DOES NOT turn white when pressed on - this can be the beginning of a pressure ulcer "A blister, deep sore or a crater - these can be advanced pressure ulcers FIRST AID: "Relieve the pressure on this area "Keep the area clean and dry "Call your primary doctor if you see any of the above symptoms "DO NOT massage the area "DO NOT use a donut shaped or ring shaped pillow- these actually interfere with the blood flow and cause complications PREVENTION: "Check for pressure ulcers everyday "Change position at least every two hours to relieve pressure "Use items that help relieve pressure- pillows, sheepskin, foam padding, and powders. "Keep skin clean and dry "Eat healthy well balanced meals "Exercise daily IF YOU SEE ANY OF THESE SYMPTOMS WHILE IN THE HOSPITAL - TELL YOUR NURSE IMMEDIATELY. IF YOU SEE ANY OF THESE SYMPTOMS WHILE AT HOME OR HAVE ANY QUESTIONS OR CONCERNS ABOUT PRESSURE ULCERS - CALL YOUR PRIMARY DOCTOR IMMEDIATELY. Addendum: 10/09/23 at 1413 by Payam Tristan RN Amended: Links added.
[2023-10-09] MEDS ORDERED: vancomycin/NS 1 GM ADD-VANTAGE 250 ML IV SCH (21:00)
[2023-10-09] MEDS: normal saline 1000ml 1,000 ML IV SCH (21:45)
[2023-10-10] VITALS (9 sets, daily range): BP systolic 115–154; BP diastolic 64–82; PULSE 65–74; RESP 14–18; TEMP 97.6–98.4; O2SAT 93–98
[2023-10-10] MEDS: HYDROcodone/acetaminophen 10/325mg tab PO PRN ×2 (00:47→08:21)
--- NOTE | 2023-10-10 06:32 | NUR ---
Problems reprioritized. Patient report given, questions answered & plan of care reviewed with TIMO POE.
[2023-10-10] MEDS: K and/or MAG REPLACEMENT MC SCH ×2 (07:40→20:00)
[2023-10-10] MEDS: levoTHYROXINE 100mcg tablet PO SCH (08:19)
[2023-10-10] MEDS: lamoTRIgine 100mg tablet PO SCH ×2 (08:19→22:14)
[2023-10-10] MEDS: docusate sod 100mg capsule PO SCH ×2 (08:19→22:13)
[2023-10-10] MEDS: CefTRIAXone/D5W-Rocephin 1gm 50 ML IV SCH (08:20)
[2023-10-10] MEDS: risperiDONE 2mg tablet PO SCH ×3 (08:20→22:13)
[2023-10-10] MEDS: gabapentin 100mg capsule PO SCH ×2 (08:20→22:14)
[2023-10-10] MEDS: trihexyphenidyl HCL 5 MG tablet PO SCH ×2 (08:20→22:13)
[2023-10-10] MEDS: propranolol 10mg tablet PO SCH ×3 (08:20→22:14)
[2023-10-10] MEDS: pantoprazole 40mg Tablet.DR PO SCH (08:20)
[2023-10-10] MEDS: heparin, porcine 5000 units/ml vial SQ SCH ×2 (08:21→22:15)
[2023-10-10] MEDS: OLANZapine 5mg rapidly disint. tablet PO SCH (08:21)
[2023-10-10] MEDS: FLUoxetine 20mg capsule PO SCH (08:24)
[2023-10-10 09:17] LABS: BASOPHILS % (AUTO) 0.5 % (0-1); EOSINOPHILS # (AUTO) 0.1 X10'3 (0-0.9); EOSINOPHILS % (AUTO) 1.8 % (0-6); HEMOGLOBIN 9.7 g/dl (12.0-16.0); LYMPHOCYTES # (AUTO) 0.4 X10'3 (1.1-4.8); MEAN CORPUSCULAR HEMOGLOBIN 30.3 PG (27.0-31.0); MEAN CORPUSCULAR HGB CONC 34.5 g/dL (33.0-36.5); MEAN PLATELET VOLUME 7.4 FL (7.4-10.4); MONOCYTES # (AUTO) 0.5 X10'3 (0-0.9); MONOCYTES % (AUTO) 10.8 % (2-12); NEUTROPHILS # (AUTO) 3.6 X10'3 (1.8-7.7); NEUTROPHILS % (AUTO) 77.9 % (42-75); PLATELET COUNT 218 X10'3 (140-440); RED BLOOD COUNT 3.18 X10'6 (4.20-5.60); RED CELL DISTRIBUTION WIDTH 13.5 % (11.5-14.5); WHITE BLOOD COUNT 4.6 X10'3 (4.5-11.0)
[2023-10-10 09:55] LABS: TOTAL CELLS COUNTED 100
[2023-10-10 09:56] LABS: ALANINE AMINOTRANSFERASE 26 U/L (12-78); ALBUMIN 1.9 G/DL (3.4-5.0); ALBUMIN/GLOBULIN RATIO 0.4 (1.1-1.5); ALKALINE PHOSPHATASE 169 IU/L (46-116); ANION GAP 10 (8-16); ASPARTATE AMINO TRANSFERASE 26 U/L (10-37); BILIRUBIN,TOTAL 0.5 MG/DL (0.1-1.0); BLOOD UREA NITROGEN 8 MG/DL (7-18); CALCIUM 8.7 MG/DL (8.5-10.1); CHLORIDE 98 MMOL/L (99-107); GLUCOSE 93 MG/DL (70-104); MAGNESIUM 1.6 MG/DL (1.5-2.4); PLATELET ESTIMATE NORMAL; SODIUM 132 MMOL/L (135-145); THYROID STIMULATING HORMONE 10.01 ulU/ml (0.34-4.50); TOTAL CARBON DIOXIDE 23.7 MMOL/L (24-32); TOTAL PROTEIN 6.3 G/DL (6.4-8.2); eCRCL 73 ML/MIN; eGFR 74 ML/MIN
[2023-10-10] MEDS: vancomycin/NS 1 GM ADD-VANTAGE 250 ML IV SCH (17:28)
[2023-10-11 01:31] LABS: OCCULT BLOOD STOOL NEGATIVE (Neg)
[2023-10-11 02:00] VITALS: BP 130/75; PULSE 71; RESP 19; TEMP 97.4; O2SAT 97
[2023-10-11] MEDS: vancomycin/NS 1 GM ADD-VANTAGE 250 ML IV SCH (06:01)
[2023-10-11 06:06] VITALS: BP 149/86; PULSE 71; RESP 20; TEMP 98.5; O2SAT 96
[2023-10-11 07:30] LABS: BASOPHILS % (AUTO) 0.4 % (0-1); EOSINOPHILS # (AUTO) 0.1 X10'3 (0-0.9); EOSINOPHILS % (AUTO) 1.4 % (0-6); HEMATOCRIT 29.6 % (35.0-45.0); LYMPHOCYTES # (AUTO) 0.6 X10'3 (1.1-4.8); LYMPHOCYTES % (AUTO) 9.4 % (21-51); MEAN CORPUSCULAR HEMOGLOBIN 29.5 PG (27.0-31.0); MEAN CORPUSCULAR HGB CONC 33.6 g/dL (33.0-36.5); MEAN CORPUSCULAR VOLUME 87.7 FL (78-98); MEAN PLATELET VOLUME 7.7 FL (7.4-10.4); MONOCYTES # (AUTO) 0.7 X10'3 (0-0.9); MONOCYTES % (AUTO) 10.8 % (2-12); NEUTROPHILS # (AUTO) 4.7 X10'3 (1.8-7.7); PLATELET COUNT 219 X10'3 (140-440); RED BLOOD COUNT 3.38 X10'6 (4.20-5.60); WHITE BLOOD COUNT 6.1 X10'3 (4.5-11.0)
[2023-10-11 07:35] VITALS: RESP 20; O2SAT 96
[2023-10-11] MEDS: K and/or MAG REPLACEMENT MC SCH (07:40)
[2023-10-11 07:47] LABS: ALANINE AMINOTRANSFERASE 24 U/L (12-78); ALBUMIN/GLOBULIN RATIO 0.4 (1.1-1.5); ALKALINE PHOSPHATASE 159 IU/L (46-116); ANION GAP 9 (8-16); ASPARTATE AMINO TRANSFERASE 23 U/L (10-37); BILIRUBIN,TOTAL 0.5 MG/DL (0.1-1.0); BLOOD UREA NITROGEN 6 MG/DL (7-18); BUN/CREATININE RATIO 7.3 (10.0-20.0); CALCIUM 8.8 MG/DL (8.5-10.1); CHLORIDE 98 MMOL/L (99-107); CREATININE 0.82 MG/DL (0.40-0.90); GLUCOSE 110 MG/DL (70-104); MAGNESIUM 1.8 MG/DL (1.5-2.4); POTASSIUM 4.2 MMOL/L (3.5-5.1); SODIUM 131 MMOL/L (135-145); TOTAL CARBON DIOXIDE 23.9 MMOL/L (24-32); TOTAL PROTEIN 6.8 G/DL (6.4-8.2); eCRCL 71 ML/MIN; eGFR 72 ML/MIN
[2023-10-11 08:46] LABS: PLATELET ESTIMATE NORMAL; TOTAL CELLS COUNTED 100
[2023-10-11] MEDS: CefTRIAXone/D5W-Rocephin 1gm 50 ML IV SCH (09:01)
[2023-10-11] MEDS: heparin, porcine 5000 units/ml vial SQ SCH (09:04)
[2023-10-11] MEDS: lamoTRIgine 100mg tablet PO SCH (09:06)
[2023-10-11] MEDS: OLANZapine 5mg rapidly disint. tablet PO SCH (09:06)
[2023-10-11] MEDS: trihexyphenidyl HCL 5 MG tablet PO SCH (09:06)
[2023-10-11] MEDS: pantoprazole 40mg Tablet.DR PO SCH (09:06)
[2023-10-11] MEDS: risperiDONE 2mg tablet PO SCH ×2 (09:06→13:40)
[2023-10-11] MEDS: docusate sod 100mg capsule PO SCH (09:06)
[2023-10-11] MEDS: gabapentin 100mg capsule PO SCH (09:06)
[2023-10-11] MEDS: propranolol 10mg tablet PO SCH ×2 (09:06→13:40)
[2023-10-11] MEDS: levoTHYROXINE 100mcg tablet PO SCH (09:06)
[2023-10-11] MEDS: FLUoxetine 20mg capsule PO SCH (09:06)
[2023-10-11 11:11] VITALS: BP 119/70; PULSE 75; RESP 18; TEMP 97.3; O2SAT 94
[2023-10-11] MEDS ORDERED: CefTRIAXone/D5W-Rocephin 1gm 50 ML IV ONE (11:20)
[2023-10-11] MEDS: HYDROcodone/acetaminophen 10/325mg tab PO PRN (13:43)
[2023-10-11 15:15] VITALS: BP 114/73; PULSE 70; RESP 16; TEMP 98.1; O2SAT 96
--- NOTE | 2023-10-11 15:59 | NUR ---
Called report to [facility]
[2023-10-11] MEDS ORDERED: VANCOMYCIN LEVEL IV ONE (16:30)
--- NOTE | 2023-10-11 17:40 | NUR ---
Pt picked up by [facility] and transferred back to [facility].
[2023-10-12] MEDS ORDERED: CefTRIAXone 2gm/D5W 50ml BAG 50 ML IV SCH (08:00)
[2023-10-12] MEDS ORDERED: VANCOMYCIN LEVEL IV ONE (20:30)
== END 2023-10-11 17:19 | DRG 862 ==
LOC: ER 15:49 → ED HOLD 21:46 → PCU 3S 10-08 07:31
PROVIDERS: ADMIT Internal Medicine; ATTEND Internal Medicine
PROC: 05HB33Z Insertion of Infusion Device into Right Basilic Vein, Percutaneous Approach (ICD-10-PCS; principal; 2023-10-11)
DX: T81.41XA Infection following a procedure, superficial incisional surgical site, initial encounter (principal); N17.0 Acute kidney failure with tubular necrosis; E87.1 Hypo-osmolality and hyponatremia; T81.32XA Disruption of internal operation (surgical) wound, not elsewhere classified, initial encounter; F31.9 Bipolar disorder, unspecified; E03.9 Hypothyroidism, unspecified; M19.90 Unspecified osteoarthritis, unspecified site; Z20.822 Contact with and (suspected) exposure to COVID-19; Y83.8 Other surgical procedures as the cause of abnormal reaction of the patient, or of later complication, without mention of misadventure at the time of the procedure; Z88.5 Allergy status to narcotic agent; Z88.8 Allergy status to other drugs, medicaments and biological substances; Z79.899 Other long term (current) drug therapy; Z85.3 Personal history of malignant neoplasm of breast; Y92.89 Other specified places as the place of occurrence of the external cause
CPT/HCPCS: 36410; 36415; 71045; 72100; 73630; 76942; 80053; 81001; 82272; 82607; 82728; 83540; 83550; 83605; 83735; 84145; 84443; 85007; 85025; 87040; 87070; 87077; 87081; 87088; 87186; 87811; 93306; 97161; 97530; 99285; A4333; A4353; A4615; A6222; A6258; A6446; A6449; C1751; G0378; J0696; J1644; J2270; J2405; J3370; J7030; J7050

== ENCOUNTER 2023-10-23 06:40 | Day surgery (SDC) | payer MEDICARE, MEDICAID ==
[2023-10-23] VITALS (13 sets, daily range): BP systolic 119–142; BP diastolic 66–90; PULSE 76–86; RESP 14–20; TEMP 97.6; O2SAT 92–100
[~2023-10-23] VITALS: Ht 167.6 cm; Wt 79.2 kg
[~2023-10-23 06:40] MED LIST changes: -ALBU18HF2 INH; +BISA10SU60 RC; +CEFT500V5 IM; +DICL20GE TOP; +DOCU-148 PO; +DOCUMENT DATE & TIME OF BETA-BLOCKER PO ONE; +HYDR-3965 PO; +HYDR-3973 PO; +LACT1TAB6 PO; +LAMO100T2 PO; -LAMO100T65 PO; +MAG30ORA22; +MAGN24002 PO; +MAGN64TA10 PO; +NA P133E4 RC; -NAPR-56 PO; +NYST1000 PO; -PSYL575P22 PO; -RISP2TAB97 PO; +cefazolin 2gm/D5W 100mL 100 ML IV ONE; +famotidine 20mg tablet PO ONE; +ringers solution, lacted 1,000 ML IV SCH
[2023-10-23] MEDS ORDERED: fentaNYL/PF 50MCG/1 ML 2ML syringe ONE (07:19)
[2023-10-23] MEDS ORDERED: midazolam 1 mg/ML 2ml injection ONE (07:20)
[2023-10-23] MEDS ORDERED: propofol inj 20 ML IV ONE (07:21)
[2023-10-23] MEDS ORDERED: LIDOcaine 2% (20mg/ml) 5ml vial ONE (07:21)
[2023-10-23] MEDS ORDERED: ondansetron/PF 4mg/2ml inj ONE (07:21)
[2023-10-23] MEDS ORDERED: dexamethasone sod phosphate 4mg/ml inj. ONE (07:21)
[2023-10-23] MEDS ORDERED: desflurane 240ml liquid inh. IH ONE (07:30)
[2023-10-23] MEDS ORDERED: ringers solution, lacted 1,000 ML IV SCH (07:45)
[2023-10-23] MEDS ORDERED: fentaNYL/PF 50MCG/1 ML 2ML syringe IV PRN ×2 (07:45)
[2023-10-23] MEDS ORDERED: hydrALAZINE 20mg/ml inj. IV PRN (07:45)
[2023-10-23] MEDS ORDERED: labetalol 20mg/4ml (5mg/ml) syringe IV PRN (07:45)
[2023-10-23] MEDS ORDERED: ondansetron/PF 4mg/2ml inj IV PRN (07:45)
[2023-10-23] MEDS ORDERED: morphine 4 MG/ML inj SYRINge IV PRN (07:45)
[2023-10-23] MEDS ORDERED: vancomycin 1,000mg inj ONE (07:49)
[2023-10-23] MEDS ORDERED: BUPIVAcaine/PF 2.5 mg/ml (0.25%) 30ml vial ONE (08:12)
[2023-10-23 08:16] LABS: ALANINE AMINOTRANSFERASE 15 U/L (12-78); ALBUMIN 2.8 G/DL (3.4-5.0); ALBUMIN/GLOBULIN RATIO 0.6 (1.1-1.5); ALKALINE PHOSPHATASE 141 IU/L (46-116); ANION GAP 10 (8-16); ASPARTATE AMINO TRANSFERASE 17 U/L (10-37); BILIRUBIN,TOTAL 0.6 MG/DL (0.1-1.0); BLOOD UREA NITROGEN 14 MG/DL (7-18); CALCIUM 9.3 MG/DL (8.5-10.1); CHLORIDE 100 MMOL/L (99-107); CREATININE 1.17 MG/DL (0.40-0.90); GLUCOSE 119 MG/DL (70-104); POTASSIUM 3.8 MMOL/L (3.5-5.1); SODIUM 134 MMOL/L (135-145); TOTAL CARBON DIOXIDE 24.3 MMOL/L (24-32); TOTAL PROTEIN 7.8 G/DL (6.4-8.2); eCRCL 54 ML/MIN; eGFR 48 ML/MIN
[2023-10-23] MEDS ORDERED: BUPIVAcaine/PF 2.5 mg/ml (0.25%) 30ml vial IJ ONE (08:30)
--- NOTE | 2023-10-23 08:35 | NUR ---
Received from OR via [facility], accompanied by Anesthesiologist JOE and report given by Anesthesiologist. PT PRESENTS ON 6L VIA MASK WITH VSS. PT IS AROUSABLE AND DOES NOT COMPLAIN OF PAIN, NAUSEA, OR VOMITING. LEFT FOOT DRESSING IS CLEAN, DRY, AND INTACT AND WOUND VAC SETTING TO 125mmHg CONTINUOS. LR RUNNING THRU CENTRAL LINE IN RIGHT UPPER ARM.
[2023-10-23] MEDS: morphine 2 MG/ML inj. syringe IV PRN ×2 (09:03→09:26)
--- NOTE | 2023-10-23 09:23 | NUR ---
CALLED [facility], SPOKE WITH NURSE MICH: GAVE DISCHARGE REPORT OVER PHONE. ALL QUESTIONS, COMMENTS, AND CONCERNS WERE ANSWERED AT THIS TIME. WILL GIVE DISCHARGE INSTRUCTIONS TO PATIENT WELL ONCE SHE IS STABLE FOR DISCHARGE
--- NOTE | 2023-10-23 09:35 | NUR ---
CALLED [facility] TO [facility] WE WILL BE READY IN ABOUT 30 MINUTES. THEY ADVISED THAT PATIENT NEEDS TO BE 100% AND SITTING IN W/C AND THEN CALL THEM BACK.
[2023-10-23 09:56] LABS: ISTAT K 4.2 mmol/L (3.5-5.1); ISTAT NA 137 mmol/L (135-145)
[2023-10-23 09:57] LABS: ISTAT ANION GAP 12 (8-12); ISTAT BUN 16 mg/dL (7-18); ISTAT CL 102 mmol/L (99-107); ISTAT CREATININE 1.1 mg/dL (0.6-1.1); ISTAT GLUCOSE 121 mg/dL (70-104); ISTAT IONIZED CALCIUM 1.25 mmol/L (1.03-1.32); ISTAT TOTAL CO2 23 mmol/L (24-32); ISTAT eGFR 51 ML/MIN; POC BUN/CREATININE RATIO 14.5 (6.6-38.0)
--- NOTE | 2023-10-23 10:05 | NUR ---
CALLED [facility] TO [facility] PATIENT IS READY TO BE PICKED UP.
--- NOTE | 2023-10-23 10:45 | NUR ---
CALLED FOR [facility] ETA - THEY ARE COMING HERE NEXT
--- NOTE | 2023-10-23 11:05 | NUR ---
PT HAS MET D/C CRITERIA. VSS. LEFT FOOT DRESSING C/D/I AND WOUND VAC SETTINGS AT 125MMHG CONTINUOS. I HAVE REVIEWED D/C INSTRUCTIONS WITH PATIENT AND SHE HAS VERBALIZED UNDERSTANDING OF INSTRUCTIONS. I ALSO CALLED [facility] AND REVIEWED ALL DISCHARGE INSTRUCTIONS WITH NURSE MICH, ALL QUESTIONS, COMMENTS, AND CONCERNS WERE ANSWERED AT THIS TIME. 2 LUMEN MIDLINE REMAINS INTACT IN RIGHT UPPER ARM. PT WAS ABLE TO GET DRESSED WITH ASSISTANCE AND TRANSFERRED/PIVOTED TO W/C WITH ASSISTANCE. PT WAS WHEELED OUT BY [facility]. PATIENT D/C HOME WITH ALL BELONGINGS INCLUDING ALL WOUND VAC SUPPLIES.
== END 2023-10-23 11:05 ==
LOC: PAS 06:40
PROVIDERS: ATTEND Podiatrist Foot & Ankle Surgery
DX: T81.49XA Infection following a procedure, other surgical site, initial encounter (principal); I10 Essential (primary) hypertension; F43.10 Post-traumatic stress disorder, unspecified; F32.A Depression, unspecified; K21.9 Gastro-esophageal reflux disease without esophagitis; M19.90 Unspecified osteoarthritis, unspecified site; Z87.440 Personal history of urinary (tract) infections; Z85.3 Personal history of malignant neoplasm of breast; Z79.891 Long term (current) use of opiate analgesic; Z79.899 Other long term (current) drug therapy; Y92.89 Other specified places as the place of occurrence of the external cause
CPT/HCPCS: 10180; 36415; 80047; 80053; 82948; 87070; 87075; 93005; J0690; J1100; J2250; J2270; J2405; J2704; J3010; J3370; J3490; J7030; J7120; Z7506; Z7508; Z7512; A4618; A6449; A7000

== ENCOUNTER 2023-10-29 13:28 | Emergency (ER) | payer MEDICARE, MEDICAID ==
[~2023-10-29] VITALS: Ht 167.6 cm; Wt 77.1 kg
[~2023-10-29 13:28] MED LIST changes: -DOCUMENT DATE & TIME OF BETA-BLOCKER PO ONE; -MAG30ORA22; +MAG30ORA22 PO; -cefazolin 2gm/D5W 100mL 100 ML IV ONE; -famotidine 20mg tablet PO ONE; -ringers solution, lacted 1,000 ML IV SCH
[2023-10-29 16:53] VITALS: BP 114/81; PULSE 73; RESP 19; TEMP 98.3; O2SAT 98
[2023-11-07] MEDS ORDERED: RISP2TAB85 PO (09:45)
[2023-11-07] MEDS ORDERED: TRIH5TAB3 PO (10:51)
== END 2023-10-29 17:35 ==
LOC: ER 13:29
DX: Z46.89 Encounter for fitting and adjustment of other specified devices (principal); Z88.8 Allergy status to other drugs, medicaments and biological substances; Z79.899 Other long term (current) drug therapy; Z79.1 Long term (current) use of non-steroidal anti-inflammatories (NSAID); Z79.2 Long term (current) use of antibiotics
CPT/HCPCS: 36410; 99284

== ENCOUNTER 2023-11-08 11:32 | Day surgery (SDC) | payer MEDICARE, MEDICAID ==
[2023-11-08] VITALS (8 sets, daily range): BP systolic 129–143; BP diastolic 62–94; PULSE 42–85; RESP 14–18; TEMP 97.5; O2SAT 81–100
[~2023-11-08] VITALS: Ht 167.6 cm; Wt 80.0 kg
[~2023-11-08 11:32] MED LIST changes: +DOCUMENT DATE & TIME OF BETA-BLOCKER PO ONE; -NYST1000 PO; +RISP2TAB85 PO; -TRIH2TAB3 PO; +TRIH5TAB3 PO; +cefazolin 2gm/D5W 100mL 100 ML IV ONE; +famotidine 20mg tablet PO ONE; +ringers solution, lacted 1,000 ML IV SCH
[2023-11-08 12:26] LABS: BASOPHILS % (AUTO) 0.7 % (0-1); EOSINOPHILS # (AUTO) 0.3 X10'3 (0-0.9); EOSINOPHILS % (AUTO) 4.5 % (0-6); LYMPHOCYTES # (AUTO) 0.7 X10'3 (1.1-4.8); LYMPHOCYTES % (AUTO) 11.5 % (21-51); MEAN CORPUSCULAR HEMOGLOBIN 29.2 PG (27.0-31.0); MEAN CORPUSCULAR HGB CONC 33.9 g/dL (33.0-36.5); MEAN CORPUSCULAR VOLUME 86.1 FL (78-98); MEAN PLATELET VOLUME 7.6 FL (7.4-10.4); MONOCYTES # (AUTO) 0.4 X10'3 (0-0.9); MONOCYTES % (AUTO) 7.4 % (2-12); NEUTROPHILS # (AUTO) 4.5 X10'3 (1.8-7.7); NEUTROPHILS % (AUTO) 75.9 % (42-75); PRE OP HEMATOCRIT 33.2 % (35.0-45.0); PRE OP HEMOGLOBIN 11.2 g/dL (12.0-16.0); PRE OP PLATELET COUNT 174 X10'3 (140-440); PRE OP WHITE BLOOD COUNT 5.9 10'3 (4.8-10.8); RED BLOOD COUNT 3.86 X10'6 (4.20-5.60); RED CELL DISTRIBUTION WIDTH 13.4 % (11.5-14.5)
[2023-11-08 13:25] LABS: ALBUMIN 3.2 G/DL (3.4-5.0); ALBUMIN/GLOBULIN RATIO 0.6 (1.1-1.5); ALKALINE PHOSPHATASE 156 IU/L (46-116); BLOOD UREA NITROGEN 11 MG/DL (7-18); BUN/CREATININE RATIO 9.2 (10.0-20.0); CALCIUM 9.8 MG/DL (8.5-10.1); CHLORIDE 100 MMOL/L (99-107); PRE OP ALT 17 U/L (30-65); PRE OP ANION GAP 11 (8-16); PRE OP AST 15 U/L (10-37); PRE OP BILIRUB, TOTAL 0.5 MG/DL (0.0-1.0); PRE OP GLUCOSE 118 MG/DL (70-104); PRE OP POTASSIUM 3.8 MMOL/L (3.4-5.1); PRE OP SODIUM 136 MMOL/L (135-145); TOTAL CARBON DIOXIDE 25.2 MMOL/L (24-32); TOTAL PROTEIN 8.7 G/DL (6.4-8.2); eCRCL 52 ML/MIN; eGFR 46 ML/MIN
[2023-11-08 13:37] LABS: BILIRUBIN,URINE NEGATIVE (Neg); CLARITY,URINE SLIGHTLY CLOUDY (Clear); COLOR,URINE YELLOW (Yellow); GLUCOSE, URINE NEGATIVE (Neg); KETONES,URINE TRACE mg/dl (Neg); LEUKOCYTE ESTERASE ,URINE NEGATIVE (Neg); NITRITES, URINE NEGATIVE (Neg); OCCULT BLOOD,URINE NEGATIVE (Neg); PROTEIN,URINE NEGATIVE (Neg); UROBILINOGEN,URINE 0.2 E.U/dL (0.2-1.0)
[2023-11-08 13:45] LABS: UA COLLECTION TYPE CLN CATCH MIDSTREAM
[2023-11-08 13:46] LABS: AMORPHOUS URATES 3+; BACTERIA,URINE FEW /HPF (Neg); MUCUS STRANDS NONE SEEN /LPF (Neg); RBC,URINE NONE SEEN /HPF (0-2); SQUAMOUS EPITHELIAL CELL,UR FEW /LPF (FEW); WBC,URINE 0-4 /HPF (0-4)
[2023-11-08] MEDS ORDERED: sevoflurane 250ml liquid IH ONE (14:00)
[2023-11-08] MEDS ORDERED: fentaNYL/PF 50MCG/1 ML 2ML syringe ONE (14:05)
[2023-11-08] MEDS ORDERED: midazolam 1 mg/ML 2ml injection ONE (14:06)
[2023-11-08] MEDS ORDERED: acetaminophen 1,000mg/100ml IV 100 ML IV ONE (14:15)
[2023-11-08] MEDS ORDERED: morphine 2 MG/ML inj. syringe IV PRN (14:15)
[2023-11-08] MEDS ORDERED: labetalol 20mg/4ml (5mg/ml) syringe IV PRN (14:15)
[2023-11-08] MEDS ORDERED: ondansetron/PF 4mg/2ml inj IV PRN (14:15)
[2023-11-08] MEDS ORDERED: morphine 4 MG/ML inj SYRINge IV PRN (14:15)
[2023-11-08] MEDS ORDERED: ketorolac trometh. 30mg/ml inj. IV ONE (14:15)
[2023-11-08] MEDS ORDERED: proCHLORperazine 10 MG/2 ml inj IV PRN (14:15)
[2023-11-08] MEDS ORDERED: HYDROmorphone/PF 0.2 MG/ML SYRINGE IV PRN ×2 (14:15)
[2023-11-08] MEDS ORDERED: hydrALAZINE 20mg/ml inj. IV PRN (14:15)
[2023-11-08] MEDS ORDERED: ringers solution, lacted 1,000 ML IV SCH (14:15)
[2023-11-08] MEDS ORDERED: BUPIVAcaine 0.5% inj/PF 30 ML ONE (14:24)
[2023-11-08] MEDS ORDERED: propofol inj 20 ML IV ONE (14:31)
[2023-11-08] MEDS ORDERED: ePHEDrine 50MG/ML INJ. ONE (14:31)
[2023-11-08] MEDS ORDERED: dexamethasone sod phosphate 4mg/ml inj. ONE (14:31)
[2023-11-08] MEDS ORDERED: ondansetron/PF 4mg/2ml inj ONE (14:31)
[2023-11-08] MEDS ORDERED: LIDOcaine 2% (20mg/ml) 5ml vial ONE (14:31)
[2023-11-08] MEDS ORDERED: vancomycin 1,000mg inj ONE (14:32)
[2023-11-08] MEDS ORDERED: povidone-iodine 10% ointment 1 APPLIC APPLIC TP ONE (14:34)
[2023-11-08] MEDS ORDERED: BUPIVAcaine 0.5% inj/PF 30 ml vial IJ ONE (14:40)
== END 2023-11-08 16:47 | disposition home or self-care (01) ==
LOC: PAS 11:32
PROVIDERS: ATTEND Podiatrist Foot & Ankle Surgery
DX: T81.49XA Infection following a procedure, other surgical site, initial encounter (principal); T81.31XA Disruption of external operation (surgical) wound, not elsewhere classified, initial encounter; I10 Essential (primary) hypertension; F32.A Depression, unspecified; F25.9 Schizoaffective disorder, unspecified; F43.10 Post-traumatic stress disorder, unspecified; K21.9 Gastro-esophageal reflux disease without esophagitis; M19.90 Unspecified osteoarthritis, unspecified site; Z87.440 Personal history of urinary (tract) infections; Z85.3 Personal history of malignant neoplasm of breast; Z98.890 Other specified postprocedural states; Z88.5 Allergy status to narcotic agent; Z88.8 Allergy status to other drugs, medicaments and biological substances; X58.XXXA Exposure to other specified factors, initial encounter; Y93.89 Activity, other specified; Y92.89 Other specified places as the place of occurrence of the external cause; Y99.8 Other external cause status
CPT/HCPCS: 11042; 36415; 80053; 81001; 82948; 85025; A6223; J0690; J1100; J2250; J2405; J2704; J3010; J3370; J3490; J7030; J7120; S0020; Z7506; Z7512; A4618; A6253; A6449; A7000

== ENCOUNTER 2023-11-11 05:13 | Emergency (ER) | payer MEDICARE, MEDICAID ==
[~2023-11-11] VITALS: Ht 167.6 cm; Wt 69.5 kg
[~2023-11-11 05:13] MED LIST changes: -DOCUMENT DATE & TIME OF BETA-BLOCKER PO ONE; -cefazolin 2gm/D5W 100mL 100 ML IV ONE; -famotidine 20mg tablet PO ONE; -ringers solution, lacted 1,000 ML IV SCH
[2023-11-11 05:25] VITALS: BP 149/96; PULSE 83; RESP 16; TEMP 98; O2SAT 96
== END 2023-11-11 12:38 | disposition home or self-care (01) ==
LOC: ER 05:14
DX: L02.416 Cutaneous abscess of left lower limb (principal); I10 Essential (primary) hypertension; E03.9 Hypothyroidism, unspecified; F31.9 Bipolar disorder, unspecified; Z79.899 Other long term (current) drug therapy
CPT/HCPCS: 73630; 99284; A6449

== ENCOUNTER 2023-12-27 14:54 | Outpatient (CLI) | payer MEDICARE, MEDICAID ==
[2023-12-27 16:53] LABS: URINE AMPHETAMINE SCREEN NEGATIVE (Neg); URINE BARBITUATE SCREEN NEGATIVE (Neg); URINE BENZODIAZEPINES SCREEN NEGATIVE (Neg); URINE CANNABINOID SCREEN NEGATIVE (Neg); URINE COCAINE SCREEN NEGATIVE (Neg); URINE METHADONE SCREEN NEGATIVE (Neg); URINE OPIATE SCREEN POSITIVE (Neg); URINE PHENCYCLIDINE SCREEN NEGATIVE (Neg)
[2023-12-27 16:55] LABS: BILIRUBIN,URINE NEGATIVE (Neg); CLARITY,URINE CLOUDY (Clear); COLOR,URINE YELLOW (Yellow); GLUCOSE, URINE NEGATIVE (Neg); KETONES,URINE NEGATIVE (Neg); LEUKOCYTE ESTERASE ,URINE LARGE (Neg); NITRITES, URINE POSITIVE (Neg); OCCULT BLOOD,URINE TRACE-INTACT (Neg); PH,URINE 6.5 (4.8-8.0); PROTEIN,URINE NEGATIVE (Neg); UROBILINOGEN,URINE 0.2 E.U/dL (0.2-1.0)
[2023-12-27 17:02] LABS: UA COLLECTION TYPE STRAIGHT CATH
[2023-12-27 17:03] LABS: BACTERIA,URINE 3+ /HPF (Neg); WBC,URINE TNTC /HPF (0-4)
[2023-12-27 17:04] LABS: SQUAMOUS EPITHELIAL CELL,UR FEW /LPF (FEW)
== END 2023-12-27 23:59 | disposition home or self-care (01) ==
LOC: LAB SPEC 14:54
PROVIDERS: ATTEND Family Medicine
DX: Z03.6 Encounter for observation for suspected toxic effect from ingested substance ruled out (principal); N39.0 Urinary tract infection, site not specified; Z79.899 Other long term (current) drug therapy
CPT/HCPCS: 80305; 81001; 87077; 87088; 87186

== ENCOUNTER 2024-02-10 15:55 | Emergency (ER) | payer MEDICARE, MEDICAID ==
[~2024-02-10] VITALS: Ht 167.6 cm; Wt 68.0 kg
[~2024-02-10 15:55] MED LIST changes: +RISP-32 PO; -RISP2TAB85 PO
[2024-02-10] MEDS ORDERED: CYCL5TAB PO (16:18)
[2024-02-10] MEDS ORDERED: non-formulary drug (Na Phos,M-B/Na Phos,Di-Ba* (Fleet's Enema*) 1 BOTTLE) RC PRN (17:00)
[2024-02-10] MEDS ORDERED: mag hydrox/Alum hydrox/simeth 30ml oral suspension PO PRN (17:00)
[2024-02-10] MEDS ORDERED: bisacodyl 10mg suppository rectal RC PRN (17:00)
[2024-02-10] MEDS ORDERED: HYDROcodone/acetaminophen 5mg/325mg tablet PO PRN (17:00)
[2024-02-10] MEDS ORDERED: acetaminophen 325mg tablet PO PRN (17:00)
[2024-02-10] MEDS ORDERED: magnesium hydroxide 30ml (MOM) UD suspension PO PRN (17:00)
[2024-02-10] MEDS ORDERED: cyclobenzaprine 10mg tablet PO PRN (17:00)
[2024-02-10 18:06] LABS: BASOPHILS % (AUTO) 0.3 % (0-1); EOSINOPHILS # (AUTO) 0.2 X10'3 (0-0.9); EOSINOPHILS % (AUTO) 2.4 % (0-6); HEMATOCRIT 44.7 % (35.0-45.0); HEMOGLOBIN 15.4 g/dl (12.0-16.0); LYMPHOCYTES % (AUTO) 13.3 % (21-51); MEAN CORPUSCULAR HEMOGLOBIN 29.2 PG (27.0-31.0); MEAN CORPUSCULAR HGB CONC 34.5 g/dL (33.0-36.5); MEAN CORPUSCULAR VOLUME 84.7 FL (78-98); MEAN PLATELET VOLUME 8.2 FL (7.4-10.4); MONOCYTES # (AUTO) 0.6 X10'3 (0-0.9); MONOCYTES % (AUTO) 7.4 % (2-12); NEUTROPHILS # (AUTO) 5.7 X10'3 (1.8-7.7); NEUTROPHILS % (AUTO) 76.6 % (42-75); PLATELET COUNT 234 X10'3 (140-440); RED BLOOD COUNT 5.28 X10'6 (4.20-5.60); RED CELL DISTRIBUTION WIDTH 14.8 % (11.5-14.5); WHITE BLOOD COUNT 7.4 X10'3 (4.5-11.0)
[2024-02-10 18:15] LABS: URINE HCG NEGATIVE (NEG)
[2024-02-10 18:16] LABS: URINE AMPHETAMINE SCREEN NEGATIVE (Neg); URINE BARBITUATE SCREEN NEGATIVE (Neg); URINE BENZODIAZEPINES SCREEN NEGATIVE (Neg); URINE CANNABINOID SCREEN NEGATIVE (Neg); URINE COCAINE SCREEN NEGATIVE (Neg); URINE METHADONE SCREEN NEGATIVE (Neg); URINE OPIATE SCREEN NEGATIVE (Neg); URINE PHENCYCLIDINE SCREEN NEGATIVE (Neg)
[2024-02-10 18:18] LABS: ALBUMIN 3.7 G/DL (3.4-5.0); ANION GAP 9 (8-16); BLOOD UREA NITROGEN 17 MG/DL (7-18); BUN/CREATININE RATIO 14.4 (10.0-20.0); CALCIUM 9.5 MG/DL (8.5-10.1); CHLORIDE 98 MMOL/L (99-107); CREATININE 1.18 MG/DL (0.40-0.90); GLUCOSE 112 MG/DL (70-104); POTASSIUM 4.2 MMOL/L (3.5-5.1); SODIUM 135 MMOL/L (135-145); TOTAL CARBON DIOXIDE 28.1 MMOL/L (24-32); eCRCL 49 ML/MIN; eGFR 47 ML/MIN
[2024-02-10 18:25] LABS: ETHANOL < 10 MG/DL (<10)
[2024-02-10 18:40] LABS: BILIRUBIN,URINE NEGATIVE (Neg); CLARITY,URINE CLOUDY (Clear); COLOR,URINE YELLOW (Yellow); GLUCOSE, URINE NEGATIVE (Neg); KETONES,URINE 40 mg/dl (Neg); LEUKOCYTE ESTERASE ,URINE TRACE (Neg); NITRITES, URINE NEGATIVE (Neg); OCCULT BLOOD,URINE TRACE-INTACT (Neg); PH,URINE 5.5 (4.8-8.0); PROTEIN,URINE NEGATIVE (Neg); UROBILINOGEN,URINE 0.2 E.U/dL (0.2-1.0)
[2024-02-10 18:41] LABS: UA COLLECTION TYPE CLN CATCH MIDSTREAM
[2024-02-10 18:48] LABS: MUCUS STRANDS FEW /LPF (Neg)
[2024-02-10 18:49] LABS: BACTERIA,URINE 1+ /HPF (Neg); RBC,URINE 0-2 /HPF (0-2); SQUAMOUS EPITHELIAL CELL,UR MODERATE /LPF (FEW); TRANSITIONAL EPI CELLS,URINE MODERATE /HPF; WBC CLUMPS,URINE FEW /HPF (NEGATIVE)
[2024-02-10 19:14] LABS: THYROID STIMULATING HORMONE 7.29 ulU/ml (0.34-4.50)
[2024-02-10 19:59] LABS: FREE T4 (FREE THYROXINE) 1.35 NG/DL (0.73-1.40)
[2024-02-10] MEDS: pantoprazole 40mg Tablet.DR PO SCH (20:34)
[2024-02-10] MEDS: lamoTRIgine 100mg tablet PO SCH (20:34)
[2024-02-10] MEDS: propranolol 10mg tablet PO SCH (20:34)
[2024-02-10] MEDS: gabapentin 100mg capsule PO SCH (20:34)
[2024-02-10] MEDS: risperiDONE 2mg tablet PO SCH (20:34)
[2024-02-10] MEDS: docusate sod 100mg capsule PO SCH (20:34)
[2024-02-10] MEDS: OLANZapine 5mg rapidly disint. tablet PO SCH (20:34)
[2024-02-10] MEDS: cephalexin 500mg capsule PO ONE (20:35)
[2024-02-10] MEDS: magnesium Cl slow-release 64mg tablet PO SCH (20:40)
[2024-02-10] MEDS: trihexyphenidyl HCL 5 MG tablet PO SCH (21:09)
[2024-02-10] MEDS: cephalexin 500mg capsule PO SCH (21:09)
[2024-02-10] MEDS: DICLOFENAC SODIUM 1% gel 1 APPLIC APPLIC TP SCH (21:10)
[2024-02-11 06:09] VITALS: BP 138/88; PULSE 86; TEMP 98.2; O2SAT 98
[2024-02-11] MEDS: levoTHYROXINE 100mcg tablet PO SCH (07:50)
[2024-02-11] MEDS: FLUoxetine 20mg capsule PO SCH (07:51)
[2024-02-11] MEDS: gabapentin 100mg capsule PO SCH (07:51)
[2024-02-11] MEDS: MELOXICAM 7.5 MG TABLET PO SCH (07:51)
[2024-02-11] MEDS: multivitamins, therapeutics tablet PO SCH (07:52)
[2024-02-11] MEDS: lactobacillus rhamnosus 10,000 MMU CELLS/CAPSULE PO SCH (07:53)
[2024-02-11] MEDS: fluticasone nasal spray 16GM bottle NS SCH (07:54)
[2024-02-11 08:00] VITALS: RESP 16
[2024-02-11] MEDS ORDERED: CEFTRIAXONE 500 MG VIAL IM SCH (08:00)
== END 2024-02-11 17:15 ==
LOC: ER 15:56
DX: F39 Unspecified mood [affective] disorder (principal); Z20.822 Contact with and (suspected) exposure to COVID-19; I10 Essential (primary) hypertension; M19.90 Unspecified osteoarthritis, unspecified site; F31.9 Bipolar disorder, unspecified; F20.9 Schizophrenia, unspecified; Z88.8 Allergy status to other drugs, medicaments and biological substances
CPT/HCPCS: 36415; 80048; 80305; 80320; 81001; 81025; 84439; 84443; 84480; 85025; 87088; 87811; 99284; C2617

== ENCOUNTER 2024-07-14 09:19 | Inpatient (IN) | payer MEDICARE, MEDICAID ==
[~2024-07-14] VITALS: Ht 162.6 cm; Wt 70.5 kg
[~2024-07-14 09:19] MED LIST changes: +CYCL5TAB PO
[2024-07-14] MEDS ORDERED: iohexol 300mg/ml 100ml inj. ONE (10:03)
[2024-07-14 10:07] LABS: BASOPHILS % (AUTO) 0.5 % (0-1); EOSINOPHILS # (AUTO) 0.1 X10'3 (0-0.9); EOSINOPHILS % (AUTO) 2.3 % (0-6); HEMATOCRIT 29.1 % (35.0-45.0); HEMOGLOBIN 9.6 g/dl (12.0-16.0); LYMPHOCYTES # (AUTO) 0.4 X10'3 (1.1-4.8); LYMPHOCYTES % (AUTO) 6.7 % (21-51); MEAN CORPUSCULAR HEMOGLOBIN 26.6 PG (27.0-31.0); MEAN CORPUSCULAR HGB CONC 33.2 g/dL (33.0-36.5); MEAN CORPUSCULAR VOLUME 80.3 FL (78-98); MEAN PLATELET VOLUME 7.9 FL (7.4-10.4); MONOCYTES # (AUTO) 0.4 X10'3 (0-0.9); MONOCYTES % (AUTO) 7.6 % (2-12); NEUTROPHILS # (AUTO) 4.7 X10'3 (1.8-7.7); NEUTROPHILS % (AUTO) 82.9 % (42-75); PLATELET COUNT 173 X10'3 (140-440); RED BLOOD COUNT 3.62 X10'6 (4.20-5.60); RED CELL DISTRIBUTION WIDTH 15.4 % (11.5-14.5); WHITE BLOOD COUNT 5.7 X10'3 (4.5-11.0)
[2024-07-14 10:32] LABS: ALBUMIN 2.8 G/DL (3.4-5.0); ANION GAP 8 (8-16); CALCIUM 8.8 MG/DL (8.5-10.1); CHLORIDE 104 MMOL/L (99-107); CREATININE 1.31 MG/DL (0.40-0.90); GLUCOSE 156 MG/DL (70-104); MAGNESIUM 1.7 MG/DL (1.5-2.4); SODIUM 136 MMOL/L (135-145); TOTAL CARBON DIOXIDE 23.6 MMOL/L (24-32); eCRCL 40 ML/MIN; eGFR 42 ML/MIN
[2024-07-14] MEDS: CefTRIAXone 2gm/D5W 50ml BAG 50 ML IV ONE (10:32)
[2024-07-14 10:38] LABS: BLOOD UREA NITROGEN 19 MG/DL (7-18); BUN/CREATININE RATIO 14.5 (10.0-20.0)
[2024-07-14] MEDS: vancomycin/NS 1 GM ADD-VANTAGE 250 ML IV ONE (11:15)
[2024-07-14 13:05] LABS: BILIRUBIN,URINE NEGATIVE (Neg); CLARITY,URINE SLIGHTLY CLOUDY (Clear); COLOR,URINE YELLOW (Yellow); GLUCOSE, URINE NEGATIVE (Neg); KETONES,URINE NEGATIVE (Neg); LEUKOCYTE ESTERASE ,URINE MODERATE (Neg); NITRITES, URINE NEGATIVE (Neg); OCCULT BLOOD,URINE NEGATIVE (Neg); PROTEIN,URINE NEGATIVE (Neg); UROBILINOGEN,URINE 0.2 E.U/dL (0.2-1.0)
[2024-07-14 13:21] LABS: UA COLLECTION TYPE CLN CATCH MIDSTREAM
[2024-07-14 13:23] LABS: SQUAMOUS EPITHELIAL CELL,UR MODERATE /LPF (FEW)
[2024-07-14 13:24] LABS: BACTERIA,URINE FEW /HPF (Neg); RBC,URINE 0-2 /HPF (0-2)
[2024-07-14] MEDS ORDERED: magnesium hydroxide 30ml (MOM) UD suspension PO PRN (13:30)
[2024-07-14] MEDS ORDERED: magnesium Cl slow-release 64mg tablet PO PRN (13:30)
[2024-07-14] MEDS ORDERED: potassium Cl 20 mEq SR tablet PO PRN ×2 (13:30)
[2024-07-14] MEDS ORDERED: mag hydrox/Alum hydrox/simeth 30ml oral suspension PO PRN (13:30)
[2024-07-14] MEDS ORDERED: magnesium sulf-water 4G/100mL 100 ML IV PRN (13:30)
[2024-07-14] MEDS ORDERED: magnesium sulf-water 2g/50mL 50 ML IV PRN (13:30)
[2024-07-14] MEDS ORDERED: potassium Cl 40MEQ/1/2NS 520ml 520 ML IV PRN (13:30)
[2024-07-14] MEDS: normal saline 500ml IV soln 500 ML IV ONE (14:40)
[2024-07-14] MEDS ORDERED: magnesium PO (15:02)
[2024-07-14] MEDS ORDERED: LEVO125T8 PO (15:02)
[2024-07-14] MEDS ORDERED: FLUO-1 PO (15:02)
[2024-07-14] MEDS ORDERED: OLAN5TAB29 PO (15:02)
[2024-07-14] MEDS ORDERED: FLUO-331 PO (15:02)
[2024-07-14] MEDS ORDERED: LAMO200T10 PO (15:02)
[2024-07-14] MEDS ORDERED: AMOX-580 PO (15:02)
[2024-07-14] MEDS ORDERED: SULF1TAB45 PO (15:02)
[2024-07-14] MEDS ORDERED: DICL100G59 (15:02)
[2024-07-14 16:07] VITALS: BP 134/78; PULSE 62; RESP 16; TEMP 98.5; O2SAT 99
[2024-07-14 16:42] LABS: FERRITIN 232 NG/ML (8-252)
[2024-07-14 16:46] LABS: % IRON SATURATION 7 % (11-46); IRON 14 UG/DL (49-151); TOTAL IRON BINDING CAPACITY 198 UG/DL (259-388)
[2024-07-14] MEDS: HYDROcodone/acetaminophen 5mg/325mg tablet PO PRN (17:19)
[2024-07-14] MEDS: cefepime 2g/NS 100ml ADVANTAGE 100 ML IV SCH (19:21)
[2024-07-14 20:00] VITALS: RESP 16; O2SAT 97
[2024-07-14] MEDS: docusate sod 100mg capsule PO SCH (20:00)
[2024-07-14] MEDS: K and/or MAG REPLACEMENT MC SCH (20:00)
[2024-07-14] MEDS: risperiDONE 2mg tablet PO SCH (20:34)
[2024-07-14] MEDS: gabapentin 100mg capsule PO SCH (20:34)
[2024-07-14] MEDS: pantoprazole 40mg Tablet.DR PO SCH (20:34)
[2024-07-14] MEDS: propranolol 10mg tablet PO SCH (20:44)
[2024-07-14] MEDS: trihexyphenidyl HCL 5 MG tablet PO SCH (20:48)
[2024-07-14] MEDS: OLANZapine 5mg rapidly disint. tablet PO PRN (21:24)
[2024-07-14 22:00] VITALS: BP 114/77; PULSE 73; RESP 16; TEMP 98.2; O2SAT 97
[2024-07-15] VITALS (18 sets, daily range): BP systolic 104–154; BP diastolic 55–137; PULSE 60–79; RESP 13–20; TEMP 97.7–98.1; O2SAT 89–99
[2024-07-15 07:03] LABS: BASOPHILS % (AUTO) 0.5 % (0-1); EOSINOPHILS # (AUTO) 0.2 X10'3 (0-0.9); EOSINOPHILS % (AUTO) 3.2 % (0-6); HEMATOCRIT 28.5 % (35.0-45.0); HEMOGLOBIN 9.2 g/dl (12.0-16.0); LYMPHOCYTES # (AUTO) 0.5 X10'3 (1.1-4.8); LYMPHOCYTES % (AUTO) 9.6 % (21-51); MEAN CORPUSCULAR HEMOGLOBIN 26.1 PG (27.0-31.0); MEAN CORPUSCULAR HGB CONC 32.3 g/dL (33.0-36.5); MEAN PLATELET VOLUME 7.8 FL (7.4-10.4); MONOCYTES # (AUTO) 0.5 X10'3 (0-0.9); MONOCYTES % (AUTO) 9.8 % (2-12); NEUTROPHILS # (AUTO) 3.9 X10'3 (1.8-7.7); NEUTROPHILS % (AUTO) 76.9 % (42-75); PLATELET COUNT 175 X10'3 (140-440); RED BLOOD COUNT 3.52 X10'6 (4.20-5.60); RED CELL DISTRIBUTION WIDTH 15.8 % (11.5-14.5); WHITE BLOOD COUNT 5.1 X10'3 (4.5-11.0)
[2024-07-15 07:07] LABS: ALBUMIN 2.5 G/DL (3.4-5.0); ANION GAP 8 (8-16); BLOOD UREA NITROGEN 16 MG/DL (7-18); BUN/CREATININE RATIO 16.3 (10.0-20.0); CALCIUM 8.9 MG/DL (8.5-10.1); CHLORIDE 105 MMOL/L (99-107); CREATININE 0.98 MG/DL (0.40-0.90); GLUCOSE 87 MG/DL (70-104); MAGNESIUM 1.7 MG/DL (1.5-2.4); POTASSIUM 4.1 MMOL/L (3.5-5.1); SODIUM 137 MMOL/L (135-145); TOTAL CARBON DIOXIDE 23.6 MMOL/L (24-32); eCRCL 54 ML/MIN; eGFR 58 ML/MIN
[2024-07-15] MEDS: trihexyphenidyl HCL 5 MG tablet PO SCH (08:00)
[2024-07-15] MEDS: normal saline 1000ml 1,000 ML IV SCH (08:10)
[2024-07-15] MEDS: levoTHYROXINE 125mcg tablet PO SCH (09:19)
[2024-07-15] MEDS: FLUoxetine 10mg capsule PO SCH (09:20)
[2024-07-15] MEDS: cefazolin 2gm/D5W 100mL 100 ML IV SCH (10:55)
[2024-07-15] MEDS ORDERED: vancomycin/NS 1 GM ADD-VANTAGE 250 ML X 1 DOSE IV SCH (11:00)
[2024-07-15] MEDS ORDERED: proCHLORperazine 10 MG/2 ml inj IV PRN (15:30)
[2024-07-15] MEDS ORDERED: meperidine/PF 25mg/ml syringe IV PRN ×3 (15:30)
[2024-07-15] MEDS ORDERED: enalaprilat dihydrate 2.5mg/2ml vial IV PRN (15:30)
[2024-07-15] MEDS ORDERED: labetalol 20mg/4ml (5mg/ml) syringe IV PRN (15:30)
[2024-07-15] MEDS: ringers solution, lacted 1,000 ML IV SCH (15:30)
[2024-07-15] MEDS ORDERED: morphine 4 MG/ML inj SYRINge IV PRN (15:30)
[2024-07-15] MEDS ORDERED: morphine 2 MG/ML inj. syringe IV PRN (15:30)
[2024-07-15] MEDS ORDERED: ondansetron/PF 4mg/2ml inj IV PRN (15:30)
[2024-07-15] MEDS ORDERED: sevoflurane 250ml liquid IH ONE (18:22)
[2024-07-15] MEDS ORDERED: midazolam 1 mg/ML 2ml injection ONE (18:29)
[2024-07-15] MEDS ORDERED: fentaNYL/PF 50MCG/1 ML 2ML syringe ONE (18:29)
[2024-07-15] MEDS ORDERED: LIDOcaine 2% (20mg/ml) 5ml vial ONE (18:43)
[2024-07-15] MEDS ORDERED: propofol inj 20 ML IV ONE (18:43)
[2024-07-15] MEDS ORDERED: fentaNYL /PF 50mcg/ml 5ml ampule ONE (19:02)
[2024-07-15] MEDS: gentamicin 40 MG/1 ML inj ONE (19:14)
[2024-07-15] MEDS ORDERED: ondansetron/PF 4mg/2ml inj ONE (20:03)
[2024-07-15] MEDS ORDERED: ceFAZolin 1000mg inj ONE (20:04)
[2024-07-15] MEDS: mupirocin 2% ointment 22GM ONE (20:23)
[2024-07-15] MEDS: BUPIVAcaine 2.5mg/ml inj 50ml vial (contains preservative) ONE (20:24)
[2024-07-15] MEDS: vancomycin 1,000mg inj ONE (20:25)
[2024-07-15] MEDS ORDERED: naloxone 0.4 mg/ml inj IV PRN (22:15)
[2024-07-16] VITALS: BP 125/70; PULSE 69; O2SAT 93
[2024-07-16] MEDS: potassium cl 20mEq in 1/2 NS 1,000 ML IV SCH (00:18)
[2024-07-16 01:00] VITALS: BP 116/67; PULSE 63; O2SAT 91
[2024-07-16 02:00] VITALS: BP 140/70; PULSE 61; RESP 14; TEMP 97.6; O2SAT 94
[2024-07-16 05:49] LABS: ALBUMIN 2.6 G/DL (3.4-5.0); ANION GAP 11 (8-16); BLOOD UREA NITROGEN 15 MG/DL (7-18); BUN/CREATININE RATIO 14.9 (10.0-20.0); CALCIUM 9.2 MG/DL (8.5-10.1); CHLORIDE 102 MMOL/L (99-107); CREATININE 1.01 MG/DL (0.40-0.90); GLUCOSE 129 MG/DL (70-104); MAGNESIUM 1.7 MG/DL (1.5-2.4); POTASSIUM 4.4 MMOL/L (3.5-5.1); SODIUM 136 MMOL/L (135-145); TOTAL CARBON DIOXIDE 22.9 MMOL/L (24-32); eCRCL 52 ML/MIN; eGFR 56 ML/MIN
[2024-07-16 05:58] LABS: BASOPHILS % (AUTO) 0.3 % (0-1); EOSINOPHILS % (AUTO) 0.2 % (0-6); HEMATOCRIT 31.4 % (35.0-45.0); HEMOGLOBIN 10.2 g/dl (12.0-16.0); LYMPHOCYTES # (AUTO) 0.3 X10'3 (1.1-4.8); LYMPHOCYTES % (AUTO) 8.1 % (21-51); MEAN CORPUSCULAR HEMOGLOBIN 26.1 PG (27.0-31.0); MEAN CORPUSCULAR HGB CONC 32.6 g/dL (33.0-36.5); MEAN PLATELET VOLUME 7.8 FL (7.4-10.4); MONOCYTES # (AUTO) 0.1 X10'3 (0-0.9); MONOCYTES % (AUTO) 1.7 % (2-12); NEUTROPHILS % (AUTO) 89.7 % (42-75); PLATELET COUNT 185 X10'3 (140-440); RED BLOOD COUNT 3.93 X10'6 (4.20-5.60); RED CELL DISTRIBUTION WIDTH 15.4 % (11.5-14.5); WHITE BLOOD COUNT 3.3 X10'3 (4.5-11.0)
[2024-07-16 06:00] VITALS: BP 143/75; PULSE 74; RESP 20; TEMP 96.9; O2SAT 99
[2024-07-16] MEDS: FERROUS SULFATE 142 MG TABLET.ER (45mg elemental) PO SCH (08:01)
[2024-07-16] MEDS: HYDROcodone/acetaminophen 10/325mg tab PO PRN (14:56)
[2024-07-16 18:00] VITALS: BP 110/52; PULSE 69; RESP 16; TEMP 98.5; O2SAT 97
[2024-07-16] MEDS: enoxaparin 40mg/0.4ml syringe SQ SCH (20:54)
[2024-07-16 22:00] VITALS: BP 112/53; PULSE 62; RESP 18; TEMP 97.6; O2SAT 97
[2024-07-17 06:00] VITALS: BP 124/74; PULSE 63; RESP 18; TEMP 98.3; O2SAT 98
[2024-07-17 07:13] LABS: BASOPHILS % (AUTO) 0.9 % (0-1); EOSINOPHILS # (AUTO) 0.1 X10'3 (0-0.9); EOSINOPHILS % (AUTO) 3.2 % (0-6); HEMATOCRIT 28.9 % (35.0-45.0); HEMOGLOBIN 9.5 g/dl (12.0-16.0); LYMPHOCYTES % (AUTO) 26.8 % (21-51); MEAN CORPUSCULAR HEMOGLOBIN 26.2 PG (27.0-31.0); MEAN CORPUSCULAR HGB CONC 32.9 g/dL (33.0-36.5); MEAN CORPUSCULAR VOLUME 79.7 FL (78-98); MEAN PLATELET VOLUME 7.7 FL (7.4-10.4); MONOCYTES # (AUTO) 0.3 X10'3 (0-0.9); MONOCYTES % (AUTO) 7.7 % (2-12); NEUTROPHILS # (AUTO) 2.3 X10'3 (1.8-7.7); NEUTROPHILS % (AUTO) 61.4 % (42-75); PLATELET COUNT 201 X10'3 (140-440); RED BLOOD COUNT 3.63 X10'6 (4.20-5.60); RED CELL DISTRIBUTION WIDTH 15.1 % (11.5-14.5); WHITE BLOOD COUNT 3.8 X10'3 (4.5-11.0)
[2024-07-17 07:25] LABS: ALBUMIN 2.5 G/DL (3.4-5.0); ANION GAP 8 (8-16); BLOOD UREA NITROGEN 12 MG/DL (7-18); BUN/CREATININE RATIO 11.8 (10.0-20.0); CALCIUM 9.1 MG/DL (8.5-10.1); CHLORIDE 106 MMOL/L (99-107); CREATININE 1.02 MG/DL (0.40-0.90); GLUCOSE 94 MG/DL (70-104); MAGNESIUM 1.5 MG/DL (1.5-2.4); POTASSIUM 4.1 MMOL/L (3.5-5.1); SODIUM 139 MMOL/L (135-145); TOTAL CARBON DIOXIDE 25.5 MMOL/L (24-32); eCRCL 52 ML/MIN; eGFR 56 ML/MIN
[2024-07-17 08:00] VITALS: RESP 18; O2SAT 98
[2024-07-17 10:00] VITALS: BP 126/66; PULSE 66; RESP 14; TEMP 98.4; O2SAT 97
[2024-07-17] MEDS ORDERED: VANCOMYCIN LEVEL IV ONE (10:30)
[2024-07-17] MEDS: povidone-iodine 120ml topical solution TP ONE (14:30)
[2024-07-17 18:00] VITALS: BP 162/85; PULSE 61; RESP 20; TEMP 98.2; O2SAT 98
[2024-07-17 22:00] VITALS: BP 152/71; PULSE 58; RESP 16; TEMP 97.2; O2SAT 99
[2024-07-18 06:00] VITALS: BP 143/76; PULSE 64; RESP 16; TEMP 97.4; O2SAT 98
[2024-07-18 06:36] LABS: BASOPHILS % (AUTO) 0.6 % (0-1); EOSINOPHILS # (AUTO) 0.2 X10'3 (0-0.9); EOSINOPHILS % (AUTO) 5.9 % (0-6); HEMATOCRIT 33.5 % (35.0-45.0); LYMPHOCYTES # (AUTO) 0.6 X10'3 (1.1-4.8); LYMPHOCYTES % (AUTO) 19.5 % (21-51); MEAN CORPUSCULAR HEMOGLOBIN 26.1 PG (27.0-31.0); MEAN CORPUSCULAR HGB CONC 32.8 g/dL (33.0-36.5); MEAN CORPUSCULAR VOLUME 79.7 FL (78-98); MONOCYTES # (AUTO) 0.3 X10'3 (0-0.9); MONOCYTES % (AUTO) 8.9 % (2-12); NEUTROPHILS # (AUTO) 1.9 X10'3 (1.8-7.7); NEUTROPHILS % (AUTO) 65.1 % (42-75); PLATELET COUNT 213 X10'3 (140-440); RED CELL DISTRIBUTION WIDTH 15.3 % (11.5-14.5); WHITE BLOOD COUNT 2.9 X10'3 (4.5-11.0)
[2024-07-18 06:49] LABS: ALBUMIN 2.9 G/DL (3.4-5.0); ANION GAP 11 (8-16); BLOOD UREA NITROGEN 9 MG/DL (7-18); BUN/CREATININE RATIO 9.5 (10.0-20.0); CALCIUM 9.8 MG/DL (8.5-10.1); CHLORIDE 103 MMOL/L (99-107); CREATININE 0.95 MG/DL (0.40-0.90); GLUCOSE 99 MG/DL (70-104); MAGNESIUM 1.5 MG/DL (1.5-2.4); POTASSIUM 3.9 MMOL/L (3.5-5.1); SODIUM 141 MMOL/L (135-145); TOTAL CARBON DIOXIDE 27.1 MMOL/L (24-32); eCRCL 56 ML/MIN; eGFR 60 ML/MIN
[2024-07-18 08:00] VITALS: RESP 16; O2SAT 98
[2024-07-18 09:18] LABS: MICROCYTOSIS 1+; PLATELET ESTIMATE NORMAL; TOTAL CELLS COUNTED 100
[2024-07-18 10:00] VITALS: BP 142/81; PULSE 59; RESP 16; TEMP 97.5; O2SAT 97
[2024-07-18 18:00] VITALS: BP 136/76; PULSE 61; RESP 20; TEMP 97.5; O2SAT 96
[2024-07-18 22:00] VITALS: BP 148/83; PULSE 60; RESP 14; TEMP 97.3; O2SAT 98
[2024-07-19 06:00] VITALS: BP 123/94; PULSE 56; RESP 12; TEMP 98.2; O2SAT 96
[2024-07-19 06:44] LABS: ALBUMIN 2.8 G/DL (3.4-5.0); ANION GAP 7 (8-16); BLOOD UREA NITROGEN 8 MG/DL (7-18); BUN/CREATININE RATIO 8.3 (10.0-20.0); CALCIUM 9.6 MG/DL (8.5-10.1); CHLORIDE 103 MMOL/L (99-107); CREATININE 0.96 MG/DL (0.40-0.90); GLUCOSE 90 MG/DL (70-104); POTASSIUM 4.1 MMOL/L (3.5-5.1); SODIUM 138 MMOL/L (135-145); TOTAL CARBON DIOXIDE 28.3 MMOL/L (24-32); eCRCL 55 ML/MIN; eGFR 60 ML/MIN
[2024-07-19 06:46] LABS: BASOPHILS % (AUTO) 0.8 % (0-1); EOSINOPHILS # (AUTO) 0.2 X10'3 (0-0.9); EOSINOPHILS % (AUTO) 5.4 % (0-6); HEMATOCRIT 31.8 % (35.0-45.0); HEMOGLOBIN 10.5 g/dl (12.0-16.0); MEAN CORPUSCULAR HEMOGLOBIN 26.7 PG (27.0-31.0); MEAN CORPUSCULAR HGB CONC 33.1 g/dL (33.0-36.5); MEAN CORPUSCULAR VOLUME 80.8 FL (78-98); MEAN PLATELET VOLUME 7.8 FL (7.4-10.4); MONOCYTES # (AUTO) 0.4 X10'3 (0-0.9); MONOCYTES % (AUTO) 9.6 % (2-12); NEUTROPHILS # (AUTO) 2.4 X10'3 (1.8-7.7); NEUTROPHILS % (AUTO) 60.2 % (42-75); PLATELET COUNT 218 X10'3 (140-440); RED BLOOD COUNT 3.93 X10'6 (4.20-5.60); RED CELL DISTRIBUTION WIDTH 15.5 % (11.5-14.5); WHITE BLOOD COUNT 4.1 X10'3 (4.5-11.0)
[2024-07-19 08:00] VITALS: RESP 12; O2SAT 96
[2024-07-19 10:00] VITALS: BP 120/63; PULSE 61; RESP 15; TEMP 97.7; O2SAT 99
[2024-07-19 18:00] VITALS: BP 109/67; PULSE 68; RESP 17; TEMP 97.7; O2SAT 99
[2024-07-19 20:00] VITALS: RESP 17; O2SAT 96
[2024-07-19 22:00] VITALS: BP 128/78; PULSE 60; RESP 14; TEMP 97.4; O2SAT 99
[2024-07-20 06:00] VITALS: BP 124/75; PULSE 58; RESP 14; TEMP 97.5; O2SAT 96
[2024-07-20 08:00] VITALS: RESP 14; O2SAT 96
[2024-07-20 10:00] VITALS: BP 112/68; PULSE 67; RESP 16; TEMP 97.8; O2SAT 97
[2024-07-20 18:00] VITALS: BP_SYST 144; BP_SYST 145; BP_DIAS 86; BP_DIAS 90; PULSE 66; PULSE 73; RESP 14; RESP 16; TEMP 97.2; TEMP 97.6; O2SAT 98
[2024-07-20] MEDS ORDERED: non-formulary drug (Fluticasone Propionate (Flonase) 2 SPRAYS) NS SCH (21:14)
[2024-07-20 22:00] VITALS: BP 144/86; PULSE 66; RESP 14; TEMP 97.2; O2SAT 98
[2024-07-21] MEDS: fluticasone nasal spray 16GM bottle NS SCH (00:15)
[2024-07-21 06:00] VITALS: BP 126/72; PULSE 58; RESP 16; TEMP 97.1; O2SAT 98
[2024-07-21 08:00] VITALS: RESP 16; O2SAT 98
[2024-07-21 10:00] VITALS: BP 120/78; PULSE 58; RESP 15; TEMP 98.3; O2SAT 100
[2024-07-21] MEDS: acetaminophen 325mg tablet PO PRN (12:07)
[2024-07-21 18:00] VITALS: BP 131/76; PULSE 58; RESP 15; TEMP 98.4; O2SAT 95
[2024-07-21 22:00] VITALS: BP 130/78; PULSE 61; RESP 13; TEMP 97.7; O2SAT 100
[2024-07-22 07:00] VITALS: BP 112/87; PULSE 70; RESP 16; TEMP 98.1; O2SAT 98
[2024-07-22 15:34] VITALS: BP 110/74; PULSE 71; RESP 17; TEMP 98.2; O2SAT 98
[2024-07-22 15:41] VITALS: O2SAT 98
[2024-07-22 19:00] VITALS: BP 136/86; PULSE 81; RESP 17; TEMP 98.7; O2SAT 98
[2024-07-22 21:00] VITALS: BP 128/85; PULSE 97; RESP 18; TEMP 98; O2SAT 98
[2024-07-23] VITALS (7 sets, daily range): BP systolic 113–145; BP diastolic 63–88; PULSE 61–75; RESP 15–24; TEMP 97.2–98.7; O2SAT 95–99
[2024-07-23] MEDS: ondansetron/PF 4mg/2ml inj IV PRN (19:46)
[2024-07-24 02:00] VITALS: BP 101/60; PULSE 65; RESP 19; TEMP 98.1; O2SAT 96
[2024-07-24 07:00] VITALS: BP 102/63; PULSE 67; RESP 19; TEMP 98; O2SAT 96
[2024-07-24 08:00] VITALS: RESP 18; O2SAT 98
[2024-07-24 10:38] VITALS: RESP 16; O2SAT 98
[2024-07-24 11:00] VITALS: BP 121/85; PULSE 72; RESP 16; TEMP 97.6; O2SAT 94
== END 2024-07-24 12:45 | DRG 495 ==
LOC: ER 09:20 → ED HOLD 13:35 → ORTHO 4S 15:29 → PCU 3S 07-21 23:50
PROVIDERS: ADMIT Family Medicine; ATTEND Family Medicine
PROC: 0QPP04Z Removal of Internal Fixation Device from Left Metatarsal, Open Approach (ICD-10-PCS; 2024-07-15)
PROC: 3E0U029 Introduction of Other Anti-infective into Joints, Open Approach (ICD-10-PCS; 2024-07-15)
PROC: 3E0T3BZ Introduction of Anesthetic Agent into Peripheral Nerves and Plexi, Percutaneous Approach (ICD-10-PCS; 2024-07-15)
PROC: 0QPP04Z Removal of Internal Fixation Device from Left Metatarsal, Open Approach (ICD-10-PCS; principal; 2024-07-15 18:22)
DX: T84.59XA Infection and inflammatory reaction due to other internal joint prosthesis, initial encounter (principal); N17.0 Acute kidney failure with tubular necrosis; L03.116 Cellulitis of left lower limb; M86.8X7 Other osteomyelitis, ankle and foot; I10 Essential (primary) hypertension; F31.9 Bipolar disorder, unspecified; D63.8 Anemia in other chronic diseases classified elsewhere; E03.9 Hypothyroidism, unspecified; F25.9 Schizoaffective disorder, unspecified; Y83.8 Other surgical procedures as the cause of abnormal reaction of the patient, or of later complication, without mention of misadventure at the time of the procedure; Z88.8 Allergy status to other drugs, medicaments and biological substances; Z79.899 Other long term (current) drug therapy; Z85.3 Personal history of malignant neoplasm of breast; Y92.89 Other specified places as the place of occurrence of the external cause
CPT/HCPCS: 36415; 73620; 73700; 76000; 76937; 80048; 81001; 82728; 83540; 83550; 83605; 83735; 84145; 84466; 85007; 85025; 85651; 87040; 87070; 87075; 87077; 87081; 87088; 87186; 88305; 88311; 96365; 96367; 97110; 97116; 97161; 97164; 97530; 97535; 97760; 99285; A4618; A6223; A6253; A6258; A6449; A7000; C1713; C1751; G0378; J0690; J0692; J0696; J1100; J1580; J1650; J2250; J2405; J2704; J3010; J3370; J3480; J3490; J7030; J7040; Q9967

== ENCOUNTER 2024-09-24 06:16 | Day surgery (SDC) | payer MEDICARE, MEDICAID ==
[2024-09-24] VITALS (12 sets, daily range): BP systolic 85–115; BP diastolic 49–77; PULSE 64–93; RESP 12–16; TEMP 98.3; O2SAT 91–99
[~2024-09-24] VITALS: Ht 167.6 cm; Wt 68.0 kg
[2024-09-24] MEDS: ceFAZolin 2gm in dextrose, iso 50 ML IV ONE (05:41)
[~2024-09-24 06:16] MED LIST changes: -BISA10SU60 RC; -CEFT500V5 IM; +CEPH500C3 PO; -CYCL5TAB PO; -DICL20GE TOP; +DIPH25CA51 PO; -DOCU-148 PO; +ENOX40SY7 SQ; +FERROUS SULFATE PO; +FLUO-331 PO; -FLUO40CA10 PO; -HYDR-3965 PO; -HYDR-3973 PO; -LACT1TAB6 PO; -LAMO100T2 PO; +LAMO200T10 PO; -LEVO100T PO; +LEVO125T8 PO; -MAG30ORA22 PO; -MAGN24002 PO; -MAGN64TA10 PO; -MULT-1085 PO; -NA P133E4 RC; -OLAN5TAB5 PO; +OXYC1TAB17 PO; +PER5325T PO; +SENN-360 PO; +magnesium PO; +ringers solution, lacted 1,000 ML IV SCH
[2024-09-24 07:13] LABS: BASOPHILS % (AUTO) 0.5 % (0-1); EOSINOPHILS # (AUTO) 0.2 X10'3 (0-0.9); EOSINOPHILS % (AUTO) 4.2 % (0-6); LYMPHOCYTES # (AUTO) 0.6 X10'3 (1.1-4.8); LYMPHOCYTES % (AUTO) 11.8 % (21-51); MEAN CORPUSCULAR HEMOGLOBIN 29.5 PG (27.0-31.0); MEAN CORPUSCULAR HGB CONC 35.1 g/dL (33.0-36.5); MEAN CORPUSCULAR VOLUME 84.1 FL (78-98); MEAN PLATELET VOLUME 8.2 FL (7.4-10.4); MONOCYTES # (AUTO) 0.5 X10'3 (0-0.9); NEUTROPHILS # (AUTO) 3.4 X10'3 (1.8-7.7); NEUTROPHILS % (AUTO) 72.5 % (42-75); PRE OP HEMATOCRIT 33.8 % (35.0-45.0); PRE OP HEMOGLOBIN 11.8 g/dL (12.0-16.0); PRE OP PLATELET COUNT 176 X10'3 (140-440); PRE OP WHITE BLOOD COUNT 4.7 10'3 (4.8-10.8); RED BLOOD COUNT 4.01 X10'6 (4.20-5.60); RED CELL DISTRIBUTION WIDTH 16.5 % (11.5-14.5)
[2024-09-24] MEDS: DOCUMENT DATE & TIME OF BETA-BLOCKER PO ONE (07:20)
[2024-09-24] MEDS: famotidine 20mg tablet PO ONE (07:20)
[2024-09-24] MEDS ORDERED: fentaNYL/PF 50MCG/1 ML 2ML syringe IV PRN ×2 (07:25)
[2024-09-24] MEDS ORDERED: ringers solution, lacted 1,000 ML IV SCH (07:25)
[2024-09-24] MEDS ORDERED: hydrALAZINE 20mg/ml inj. IV PRN (07:25)
[2024-09-24] MEDS ORDERED: ondansetron/PF 4mg/2ml inj IV PRN (07:25)
[2024-09-24] MEDS ORDERED: morphine 4 MG/ML inj SYRINge IV PRN (07:25)
[2024-09-24] MEDS ORDERED: labetalol 20mg/4ml (5mg/ml) syringe IV PRN (07:25)
[2024-09-24 08:22] LABS: ALBUMIN 2.9 G/DL (3.4-5.0); ALBUMIN/GLOBULIN RATIO 0.7 (1.1-1.5); ALKALINE PHOSPHATASE 112 IU/L (46-116); BLOOD UREA NITROGEN 20 MG/DL (7-18); BUN/CREATININE RATIO 16.4 (10.0-20.0); CALCIUM 8.8 MG/DL (8.5-10.1); CHLORIDE 104 MMOL/L (99-107); CREATININE 1.22 MG/DL (0.40-0.90); PRE OP ALT 12 U/L (30-65); PRE OP ANION GAP 7 (8-16); PRE OP AST 22 U/L (10-37); PRE OP BILIRUB, TOTAL 0.3 MG/DL (0.0-1.0); PRE OP GLUCOSE 102 MG/DL (70-104); PRE OP SODIUM 138 MMOL/L (135-145); TOTAL CARBON DIOXIDE 26.8 MMOL/L (24-32); TOTAL PROTEIN 6.9 G/DL (6.4-8.2); eCRCL 47 ML/MIN; eGFR 45 ML/MIN
[2024-09-24 08:23] LABS: PRE OP POTASSIUM 4.6 MMOL/L (3.4-5.1)
[2024-09-24] MEDS ORDERED: bacitracin 15gm ointment TP ONE (08:42)
[2024-09-24] MEDS ORDERED: BUPIVAcaine 2.5mg/ml inj 50ml vial (contains preservative) ONE (08:42)
[2024-09-24] MEDS ORDERED: fentaNYL/PF 50MCG/1 ML 2ML syringe ONE (09:07)
[2024-09-24] MEDS ORDERED: acetaminophen 1,000mg/100ml IV 100 ML IV ONE (09:08)
[2024-09-24] MEDS ORDERED: ROPIVAcaine 0.5% (5mg/ml) 30ml vial ONE (09:08)
[2024-09-24] MEDS ORDERED: LIDOcaine 2% (20mg/ml) 5ml vial ONE (09:08)
[2024-09-24] MEDS ORDERED: midazolam 1 mg/ML 2ml injection ONE (09:08)
[2024-09-24] MEDS ORDERED: propofol inj 20 ML IV ONE (09:08)
[2024-09-24] MEDS ORDERED: sevoflurane 250ml liquid IH ONE (09:31)
[2024-09-24] MEDS ORDERED: ondansetron/PF 4mg/2ml inj ONE (09:48)
[2024-09-24] MEDS ORDERED: fentaNYL /PF 50mcg/ml 5ml ampule ONE (10:59)
[2024-09-24] MEDS: morphine 2 MG/ML inj. syringe IV PRN (13:34)
== END 2024-09-24 14:13 | disposition home or self-care (01) ==
LOC: PAS 06:16
PROVIDERS: ATTEND Podiatrist Foot & Ankle Surgery
DX: S92.812A Other fracture of left foot, initial encounter for closed fracture (principal); M19.072 Primary osteoarthritis, left ankle and foot; G89.18 Other acute postprocedural pain; I10 Essential (primary) hypertension; F43.10 Post-traumatic stress disorder, unspecified; F25.9 Schizoaffective disorder, unspecified; F32.A Depression, unspecified; Z79.82 Long term (current) use of aspirin; Z79.890 Hormone replacement therapy; Z79.899 Other long term (current) drug therapy; Z98.890 Other specified postprocedural states; Z88.8 Allergy status to other drugs, medicaments and biological substances; X58.XXXA Exposure to other specified factors, initial encounter; Y93.89 Activity, other specified; Y92.89 Other specified places as the place of occurrence of the external cause; Y99.8 Other external cause status
CPT/HCPCS: 27685; 28104; 28730; 36415; 64450; 73620; 80053; 85025; 87070; 87075; 93005; A4215; A4618; A6223; A6402; A6449; A7000; C1713; C1762; J0131; J0690; J1100; J2001; J2250; J2270; J2405; J2704; J2795; J3010; J7030; J7120; Z7506; Z7508; Z7512; Z7610; 76000; J3490

== ENCOUNTER 2025-07-05 10:30 | Outpatient (CLI) | payer MEDICARE, MEDICAID ==
[~2025-07-05 10:30] MED LIST changes: +BISA10SU11 RC; +HYDR-3973 PO; +ONDA-243 PO; +POLY17PO10 PO; -ringers solution, lacted 1,000 ML IV SCH
--- NOTE | 2025-07-05 14:38 | RADIOLOGY REPORT ---
CLINICAL HISTORY: EFFUSION, RIGHT ANKLE TECHNIQUE: Multisequence multiplanar MRI images of the right ankle were obtained without contrast. COMPARISON: No prior imaging of the right ankle was available for comparison at the time of dictation . FINDINGS: BONES/JOINTS: No acute fracture or focal marrow contusion. No osteochondral lesion. Moderate arthrit ic changes of of the ankle involving the tibiotalar joint. The lateral malleolus abuts the lateral as pect of the lateral talar facet, with associated mild cystic change. No significant joint effusion. TENDONS: There is tenosynovitis of the tibialis posterior, flexor digitorum longus, and flexor halluc is longus tendons, greatest involving the flexor hallucis longus tendon. Intrasubstance signal in the peroneus longus and brevis tendons along their retromalleolar courses, suspected longitudinal split tears with mild tenosynovitis. Thickened appearing peroneal retinaculum with moderate adjacent edema and fluid. Portions of the peroneus brevis tendon are not visualized of the inframalleolar course, ma y be due to tear and/or subluxation/dislocation. Tibialis anterior, extensor hallucis longus, and ext ensor digitorum longus tendons are intact. Mild Achilles tendinosis with minimal peritendinitis. No A chilles tendon tear. LIGAMENTS: Deltoid ligament complex is intact. Spring ligament complex is intact. Tear of the anterio r talofibular ligament, appears to be completely or near completely torn. Posterior talofibular ligam ent is intact. Syndesmotic ligaments are intact. Thickened appearing calcaneofibular ligament, may be sequela of chronic sprain. PLANTAR FASCIA: Mild edema adjacent to the calcaneal attachment of the plantar fascia. SINUS TARSI: Unremarkable. No significant edema. MUSCLES: Unremarkable. No significant atrophy. OTHER: Motion artifact limits evaluation. IMPRESSION: 1. Motion limited study. 2. Anterior talofibular ligament tear. 3. Longitudinal split tears of the peroneus longus and brevis tendons along their retromalleolar cour ses with mild tenosynovitis. Portions of the peroneus brevis tendon are not visualized distal to the level of the lateral malleolus, may be due to tear or subluxation/ dislocation. Correlate with clini miah findings. Abnormally thickened peroneal retinaculum with adjacent edema and fluid, suspected joanne rosenda retinaculum injury. 4. Tenosynovitis of the flexor tendons. 5. Arthritic changes and additional findings as detailed above.
== END 2025-07-05 23:59 | disposition home or self-care (01) ==
LOC: MRI02 10:30
PROVIDERS: ATTEND Podiatrist Foot & Ankle Surgery
DX: S93.491A Sprain of other ligament of right ankle, initial encounter (principal); S93.326A Dislocation of tarsometatarsal joint of unspecified foot, initial encounter; M19.071 Primary osteoarthritis, right ankle and foot; M65.871 Other synovitis and tenosynovitis, right ankle and foot; M76.61 Achilles tendinitis, right leg; M25.472 Effusion, left ankle; M25.471 Effusion, right ankle; M25.371 Other instability, right ankle; M25.374 Other instability, right foot; M79.671 Pain in right foot; T81.40XA Infection following a procedure, unspecified, initial encounter; T81.49XA Infection following a procedure, other surgical site, initial encounter; T81.31XA Disruption of external operation (surgical) wound, not elsewhere classified, initial encounter; M72.2 Plantar fascial fibromatosis; X58.XXXA Exposure to other specified factors, initial encounter; Y93.89 Activity, other specified; Y92.89 Other specified places as the place of occurrence of the external cause; Y99.8 Other external cause status
CPT/HCPCS: 73721

== ENCOUNTER 2025-09-02 10:58 | Inpatient (IN) | payer MEDICARE, MEDICAID ==
--- NOTE | 2025-09-01 15:34 | ELECTROCARDIOGRAPH REPORT ---
[facility] Test Date: 2025-09-01 Test Time: 15:32:38 Pat Name: LIDIA QUINONES Department: PRE/OP CARDIOLOGY Room: [place] [address] Gender: F E Learning Specialist: MIKE : [id number] Requested By: EDILIA JIN Order Number: [id number] Reading MD: Dr. Aracely Lerma Measurements Intervals [place] Rate: 80 P: 67 NE: 178 QRS: 65 QRSD: 79 T: 64 QT: 363 QTc: 419 Interpretive Statements Sinus rhythm Low voltage, precordial leads Nonspecific T abnormalities, anterior leads ST elevation, consider inferior injury Electronically Signed On 09-06-2025 7:00:[address] Aracely Lerma Please click the below link to view image of tracing.
[2025-09-01 15:37] LABS: LEUKOCYTE ESTERASE ,URINE NEGATIVE (Neg); NITRITES, URINE NEGATIVE (Neg); OCCULT BLOOD,URINE NEGATIVE (Neg)
[2025-09-01 15:41] LABS: MEAN PLATELET VOLUME 8.2 FL (7.4-10.4); PRE OP HEMATOCRIT 39.0 % (35.0-45.0); PRE OP HEMOGLOBIN 13.1 g/dL (12.0-16.0); PRE OP PLATELET COUNT 145 X10'3 (140-440); PRE OP WHITE BLOOD COUNT 4.2 10'3 (4.8-10.8); RED CELL DISTRIBUTION WIDTH 13.0 % (11.5-14.5)
[2025-09-01 15:49] LABS: UA COLLECTION TYPE CLN CATCH MIDSTREAM
[2025-09-01 15:52] LABS: CREATININE 1.54 MG/DL (0.40-0.90); PRE OP ALT 23 U/L (30-65); PRE OP ANION GAP 6 (8-16); PRE OP AST 23 U/L (10-37); PRE OP BILIRUB, TOTAL 0.3 MG/DL (0.0-1.0); PRE OP GLUCOSE 104 MG/DL (70-104); PRE OP POTASSIUM 5.0 MMOL/L (3.4-5.1); PRE OP SODIUM 137 MMOL/L (135-145); TOTAL CARBON DIOXIDE 29.2 MMOL/L (24-32); eGFR 34 ML/MIN
[2025-09-02] VITALS (18 sets, daily range): BP systolic 129–168; BP diastolic 66–133; PULSE 60–90; RESP 16; TEMP 97.6–97.8; O2SAT 91–99
[~2025-09-02] VITALS: Ht 167.6 cm; Wt 91.4 kg
[2025-09-02] MEDS: ceFAZolin 2gm/dext,iso 50mL 50 ML IV ONE (05:30)
[~2025-09-02 10:58] MED LIST changes: -ACET-890 PO; +ALBU18HF2 INH; -BISA10SU11 RC; -CEPH500C3 PO; +CETI10TA14 PO; -DIPH25CA51 PO; -ENOX40SY7 SQ; -FERROUS SULFATE PO; -FLUT16SP2 BOTHNARES; +FLUT9.9S BOTHNARES; -HYDR-3973 PO; -OMEP20CA16 PO; -ONDA-243 PO; -OXYC1TAB17 PO; +PANT-47 PO; -PER5325T PO; -POLY17PO10 PO; -PROP10TA10 PO; +RISP3TAB77 PO; -SENN-360 PO; -magnesium PO
[2025-09-02] MEDS: ringers solution, lacted 1,000 ML IV SCH ×2 (13:44→15:55)
[2025-09-02] MEDS ORDERED: BUPIVAcaine 2.5mg/ml inj 50ml vial (contains preservative) ONE ×2 (14:39→16:41)
[2025-09-02] MEDS ORDERED: bacitracin 15gm ointment TP ONE (14:40)
[2025-09-02] MEDS ORDERED: fentaNYL/PF 50MCG/1 ML 2ML syringe ONE ×2 (15:42→16:40)
[2025-09-02] MEDS ORDERED: midazolam 1 mg/ML 2ml injection ONE (15:43)
[2025-09-02] MEDS ORDERED: HYDROmorphone/PF 0.2 MG/ML SYRINGE IV PRN (15:55)
[2025-09-02] MEDS ORDERED: hydrALAZINE 20mg/ml inj. IV PRN (15:55)
[2025-09-02] MEDS ORDERED: ondansetron/PF 4mg/2ml inj IV PRN ×2 (15:55→18:05)
[2025-09-02] MEDS ORDERED: fentaNYL/PF 50MCG/1 ML 2ML syringe IV PRN (15:55)
[2025-09-02] MEDS ORDERED: labetalol 20mg/4ml (5mg/ml) syringe IV PRN (15:55)
[2025-09-02] MEDS: BUPIVAcaine/PF 2.5 mg/ml (0.25%) 30ml vial IJ ONE (16:00)
[2025-09-02] MEDS ORDERED: propofol inj 20 ML IV ONE (16:39)
[2025-09-02] MEDS ORDERED: dexamethasone sod phosphate 4mg/ml inj. ONE (16:54)
[2025-09-02] MEDS ORDERED: ondansetron/PF 4mg/2ml inj ONE (16:54)
[2025-09-02] MEDS ORDERED: bisacodyl 10mg suppository rectal RC PRN (18:05)
[2025-09-02] MEDS ORDERED: PCA WASTE DOCUMENTATION 1 MG ML MC SCH (18:05)
[2025-09-02] MEDS ORDERED: acetaminophen 1,000mg/100ml IV 100 ML IV ONE (18:28)
[2025-09-02] MEDS: HYDROmorphone/PF 0.2 MG/ML SYRINGE IV PRN (19:00)
[2025-09-02] MEDS: acetaminophen 1,000mg/100ml IV 100 ML IV PRN (19:01)
--- NOTE | 2025-09-02 19:01 | OPERATIVE REPORT ---
DATE OF SURGERY: 09/02/2025 DICTATING PHYSICIAN: ALBERTO OTERO DPM PREOPERATIVE DIAGNOSES: Left foot pain, left foot broken orthopedic hardware, left foot plantar midfoot exostosis, right foot pain, right ankle pain, right ankle instability, right ankle peroneal tendon tear, and right ankle inversion issues. POSTOPERATIVE DIAGNOSES: Left foot pain, left foot broken orthopedic hardware, left foot plantar midfoot exostosis, right foot pain, right ankle pain, right ankle instability, right ankle peroneal tendon tear, and right ankle inversion issues. PROCEDURES: * Left foot hardware removal. * Plantar midfoot saucerization and exostectomy. * Peroneal tendon repair of the right side. * Peroneal tendon anastomosis. * Flexor hallucis longus long tendon transfer and that is all of the right foot and ankle. SURGEON: Alberto Otero DPM FENCE ERECTOR SUPERVISOR: Marco A Ozuna DPM fellow, assistance was needed to decrease tourniquet time, help with efficiency and retraction throughout the entirety of the procedure. ANESTHESIA: General anesthesia. HEMOSTASIS: A thigh tourniquet on the right side and a calf tourniquet on the left side. COMPLICATIONS: None. 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 ESTIMATED BLOOD LOSS: Less than 30 mL total. INJECTABLES: 45 mL of 0.25% Marcaine plain in both of the ankles. SPECIMENS: None. INDICATIONS: The patient presented to the office with the above-listed complaints, which have been unresponsive to conservative treatment options. Thus, surgical options have been offered along with all potential risks, complications, and surgical options being fully explained to the patient with understanding. No guarantees were given. Clinical and radiographic data correlate above diagnosis. The patient has been going through a very difficult past couple of months and years with her feet. Unfortunately, the patient has sustained multiple traumatic issues to both feet and ankles. It first started with an ankle fracture that was surgically fixated and then the patient suffered a Lisfranc fracture dislocation, which was then surgically fixated. This unfortunately became infected and had failed multiple times. We then had to remove the hardware and deal with the infected bone, which was then stabilized with intramedullary beaming. The patient did well for many months, but then came in to see me and unfortunately had broken the medial column nail. The patient did have some plantar prominences of the midfoot bone, but overall there was no significant instability upon my physical exam of the midfoot when we evaluated the left side. This also was complicated with a significant right ankle issue. During the time that she had to rely on her right side being the good side, the patient seemingly injured the peroneus longus and peroneus brevis tendons. I did get an MRI, which had an inconsistent read with my clinical findings. The patient had an extreme inversion ankle instability issue. The patient with walking would almost collapse even on solid flat surface ground. This was most of her issues. The patient was unable to even ambulate because of this right ankle. This is where we became situated in a little bit of a predicament where her left side was having issues and her right side was having issues. Because of the complications on her right ankle where she was unable to walk and stand and this ankle was unable to support her lifestyle, it was decided that we should fix the right side appropriately. I talked to the patient and her caregiver about removing the distal part of the broken screw and stressing the patient's joint and knocking down some of the bone spurs. The patient had previously undergone a tendo-Achilles lengthening and had excellent range of motion to this ankle, so therefore, the overall deforming force of the plantar flexion or equinus was not there, so we were hoping that as the right side heals, the left side will be placed into a custom-made AFO and this is the route that the patient and her caregiver would like to undergo. Unfortunately, this has just been a very complicated surgical history and injury history with this patient as I do empathize for her and I did explain to her that my goal is to ultimately make her better as much as we physically can. They understand this and they know that there are no guarantees with any of the surgical interventions. DESCRIPTION OF PROCEDURE: The patient was brought to the operating room and placed on the operating table in the supine position. The patient was induced under general anesthesia. We then performed a local anesthetic nerve block on both ankles. We did this and then after this, we prepped sides of the feet and ankles on both ankles and feet with sterile normal saline and the usual aseptic technique. The patient had antibiotics running through her IV. A timeout was called. We then went up on the left side first. Left side: Hardware removal, plantar midfoot exostectomy and saucerization. We then brought our attention to the distal aspect of the great toe where a guidewire was used to thread into the cannulated portion of the broken screw. We then used a hardware removal set in order to make a small incision and then we removed the distal portion of the screw appropriately. After this, we then identified where there was a small portion of plantar midfoot bone and we made a small incision for our midfoot exostectomy. We used minimally invasive techniques with a high torque and low revolution yusef with the patient representative in the room. We then identified the bone and then we carefully saucerized this bone using this technique and then all the bone paste was then carefully squeezed out of the patient's foot appropriately. We then flushed with copious amounts of sterile normal saline of all of our incisions. After this, we then used our intraoperative fluoroscopic guide in order to stress the patient's midfoot. We stressed in a transverse plane and it was noted that there was some coalescence of the bones, so there was no major instability. We also stressed in a sagittal plane and it was noted that it seemed like the bones were moving in a united aspect, so there was no major instability. We removed and saucerized the plantar bone until there were no prominences that we could visualize. The patient had excellent range of motion to her ankle, so therefore, we concluded this procedure on the left side as this was going to be our partial weightbearing side. Right foot and ankle. We then brought our attention to the medial and lateral aspects of the patient's right ankle. We then went up on this tourniquet on the right side and then performed an incision over the peroneal tendons. We then carefully dissected down to the level of the subcutaneous tissue with care being taken to identify and retract all body neurovascular structures. After this, we then carefully dissected down to the level of the peroneal retinaculum, which was opened up to the bone. There was extreme scar tissue to the peroneal retinaculum. This made things extremely difficult to identify the appropriate anatomy. We had to start distally over the fifth metatarsal base and then we followed our peroneus brevis and longus tendons proximally until we reached a stopping point where there was no continuation of the tendons. It was determined that both tendons had completely ruptured and there was significant retraction and scar tissue into the proximal ankle, so therefore, we carefully carried our dissection posterior to the fibula. We identified the two tendons, which were extremely scarred down. The retinaculum was nonexistent within this region. We had to carefully dissect these out. It was then decided that a flexor hallucis longus tendon transfer was needed because we were unable to end-to-end repair these tendons, so therefore, we brought our attention to the plantar midfoot at the medial side where a separate incision was then made. We carefully dissected a sunrise incision out of the patient's midfoot identifying the flexor hallucis longus tendon. We then transected as far distal as possible. After this, we then brought our attention to the posterolateral ankle where we identified the flexor hallucis longus muscle belly. We then threaded the tendon out from the midfoot into the back of the ankle and then out laterally in line with the peroneal tendons. It was noted that we had a significant amount of length of the tendon transfer, so therefore, it was decided that we would perform a direct tenodesis attachment into the fifth metatarsal base as this would have given us the best mechanical advantage. So, therefore, we made a [id number] drill hole of the fifth metatarsal base using intraoperative fluoroscopic imaging. The patient representative was in the room and the base draw operator's guidelines were used. We then reamed for a 6 because the tendon was about a 5.5 in length. We then threaded it from inferior to superior and then we held the patient's foot in an excellent reduced and neutral position and then we placed an [place] 4.75 Bio-Tenodesis screw into the fifth metatarsal with excellent compression and stability. We then reinforced our repair as we sutured the tendon onto itself. We sutured the tendon onto the distal attachments of the peroneus longus and peroneus brevis tendons. After this, we then anastomosed the tendons as much as we could with an 0 Vicryl. The tendons of the proximal portion were then carefully distally distracted as far as we could pull them and then we sutured them into the proximal aspect of the flexor hallucis longus tendon transfer. It was noted that there was excellent stability. We even tried to dorsiflex and invert the patient's heel and there was excellent stability against resistance. After this, we then flushed with copious amounts of sterile normal saline. We took a final fluoroscopic image. We then had to close some of the deep fascia over the tendons. We range of motion the patient's ankle joint and because the peroneal tendons were attached to the deep portion of the flexor hallucis longus, there was no subluxation. We had to close some of the deep fascia over this area after we flushed with copious amounts of sterile normal saline and then we closed the rest of the incision with 3-0 Vicryl and then 3-0 nylon. After this, we then dressed the patient's incision with triple antibiotic ointment followed by Adaptic, 4x4s, and a Webril. The patient was placed in a well-padded posterior splint with the foot held at an everted and slightly dorsiflexed position. The tourniquet was deflated and the patient was taken out of the OR and placed in the PACU with vital signs stable and vascular status intact to operative foot. The patient is instructed to be nonweightbearing to the operative foot on the right side. The patient was instructed to be partial protected weightbearing on the left side in a boot. The patient was then recovered in the recovery room and then admitted to the hospital floor for further medical management. The patient is planning on going and discharging to [facility]. I have already worked out a deal with the HYDROLOGY TEACHER of [facility] to make this happen. We are going to continue to monitor and manage as she is here. The patient has a long recovery road ahead of her. She understands this. I will continue to follow up with her. The patient will likely need custom-made braces to both feet. All of her questions were answered today and she was in agreement with this treatment plan. The entire case was performed in a teaching fashion. I was available pre and postoperatively and answered questions from the patient and her family. ALBERTO OTERO DPM TID: [id number] RECEIPT: [id number] NUPUR/EVERT
[2025-09-02] MEDS: fentaNYL/PF 50MCG/1 ML 2ML syringe IV PRN (19:14)
[2025-09-02] MEDS: potassium cl 20mEq in 1/2 NS 1,000 ML IV SCH (19:48)
--- NOTE | 2025-09-02 20:40 | CONSULTATION REPORT - RESIDENT ---
Consult Providers to CC Resident Creating Document: SAM HENRY RES History of Present Illness Reason for Admit\Complaint: feet pain History of Present Illness Patient is a 60-year-old female underwent elective bilateral multiple foot surgeries by Dr. Otero this evening. This is a hospitalist consultation as surgeon request. Patient underwent multiple bilateral foot surgery which includes * Left foot hardware removal. * Plantar midfoot saucerization and exostectomy. * Peroneal tendon repair of the right side. * Peroneal tendon anastomosis. * Flexor hallucis longus long tendon transfer and that is all of the right foot and ankle. Patient had history of schizoaffective disorder, bipolar disorder depression disorder, hypothyroidism, breast cancer, GI bleeding. She is living in [facility] living facility, I saw patient after surgery. She denied any chest pain, shortness of breaths, abdominal pain, nausea vomiting changing in bowel habits or urinary habits, fever chills. She reported the lower extremity pain is tolerable at this time. Allergies: Coded Allergies: quetiapine (Verified Allergy, Severe, anaphylaxis, 09/01/25) oxycodone (Verified Allergy, Unknown, 10/03/24) lorazepam (Verified Adverse Reaction, Severe, PSYCHOTIC EPISODES, 09/01/25) Home Medications Home Medications Active Reported PROTONIX tablet (Pantoprazole Sodium) 40 Mg Tablet.dr 40 Mg PO BIDAC Flonase Allergy Relief (Fluticasone Propionate) 50 Mcg/Actuation [place].susp 2 Sprays BOTHNARES DAILY Ventolin Hfa (Albuterol Sulfate) 90 Mcg Hfa.aer.ad 2 Puffs INH Q4HPRN PRN Cetirizine HCl 10 Mg Tablet 1 Tab PO HS Risperidone 3 Mg Tablet 1 Tab PO NOON Levothyroxine Sodium 125 Mcg Tablet 1 Tab PO DAILY Lamotrigine 200 Mg Tablet 1 Tab PO DAILY Fluoxetine HCl 10 Mg Capsule 1 Cap PO DAILY Trihexyphenidyl Hcl 5 Mg Tablet 1 Tab PO Q12H Risperidone 2 Mg Tablet 1 Tab PO BID Meloxicam* (Meloxicam) 7.5 Mg Tablet 15 Mg PO DAILY Gabapentin 100 Mg Capsule 2 Cap PO HS Past Medical History Past Medical History GI bleeding in 2023( endoscopy in 202324 grade a esophagitis with no bleeding, small hiatal hernia, gastritis)( 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 * Plantar midfoot saucerization and exostectomy. * Peroneal tendon repair of the right side. * Peroneal tendon anastomosis. * Flexor hallucis longus long tendon transfer and that is all of the right foot and ankle. Family History Family History: FH: breast cancer (Mother,) FH: heart disease FATHER Past Social History Social History Comment Nonsmoker, denied any other recreational drug Denied drinking alcohol Exam Vitals: Vital Signs Date Time Temp Pulse Resp B/P (MAP) Pulse Ox O2 Delivery O2 Flow Rate FiO2 09/02/25 19:30 60 16 129/76 (93) 93 Room Air 0.0 09/02/25 18:30 97.5 General: General: Awake and Alert, no acute distress. HEENT: Conjunctiva pink, Sclera clear, Mucus Membranes moist. Neck: Supple without masses and tenderness. Resp: Lungs clear to auscultation bilaterally. Heart: Regular Rate and rhythm, normal S1 and S2 Abdomen: Soft and non tender no organomegaly Extremities: Bilateral foot covered by dressing, shipping and receiving weigher sensation Left foot is elevated and on Splint Skin: Warm and Dry. Neurological: Speech is clear, alert, and oriented x 4, no gross neurological deficits Diagnostic Data Last Recorded Lab Results: 09/01/25 1524 09/01/25 1524 Additional Plan 60 years old female with history of schizoaffective disorder, depression, bipolar, hypothyroidism, admitted for elective bilateral foot surgeries. Foot pain and swelling underwent bilateral foot surgeries by Dr Otero PROCEDURES: * Left foot hardware removal. * Plantar midfoot saucerization and exostectomy. * Peroneal tendon repair of the right side. * Peroneal tendon anastomosis. * Flexor hallucis longus long tendon transfer and that is all of the right foot and ankle. On IV fluid and Ancef Managed by orthopedic surgeon Acute on chronic kidney failure BUN 24, creatinine 1.54 kidney function decline compared to last year on IV fluid 125 mL/hour, we will continue monitoring Schizoaffective disorder, bipolar, Depression Continue home medication Sam Henry MD Internal Medicine Resident I saw and discussed the case with Dr Henry I saw the pt and she was sleeping I agree with the assessment and plan of care as per DR HENRY Thank you Date of Service: Sep 02, 2025 Billing Provider: FELIX CHESTER MD, [place]LA[place], RES Sep 02, 2025 20:40 FELIX CHESTER MD Sep 03, 2025 02:24
[2025-09-02] MEDS: HYDROmorphone inj. 0.5 MG/0.5 ML DISP.SYRIN IV PRN (21:30)
[2025-09-03] VITALS (10 sets, daily range): BP systolic 99–125; BP diastolic 42–80; PULSE 55–93; RESP 14–70; TEMP 97.3–98.4; O2SAT 20–95
[2025-09-03] MEDS: ceFAZolin/D5W- 1GM premix 50 ML IV SCH (00:32)
[2025-09-03 04:27] LABS: MEAN PLATELET VOLUME 8.1 FL (7.4-10.4); RED CELL DISTRIBUTION WIDTH 13.2 % (11.5-14.5)
[2025-09-03 05:00] LABS: TOTAL CARBON DIOXIDE 26.8 MMOL/L (24-32)
--- NOTE | 2025-09-03 07:08 | PROGRESS NOTE ---
Ortho Clinic Progress Note History of Present Illness Allergies: Coded Allergies: quetiapine (Verified Allergy, Severe, anaphylaxis, 09/01/25) oxycodone (Verified Allergy, Unknown, 10/03/24) lorazepam (Verified Adverse Reaction, Severe, PSYCHOTIC EPISODES, 09/01/25) Social History Drug Use: None Pain Pain Present: Yes Verbalized Pain Intensity: 8 Location Location Modifier: Right Pain Location: Foot Subjective Patient is now s/p R FHL tendon transfer, peroneal tenodesis, R HWR, midfoot plantar exostectomy. States she is doing otherwise well overnight with pain controlled on current regimen. Denies nausea, vomiting, fever, chills, chest pain, shortness of breath. Objective Vital Signs Date Time Temp Pulse Resp B/P (MAP) Pulse Ox O2 Delivery O2 Flow Rate FiO2 09/03/25 07:00 16 09/03/25 02:00 97.8 55 103/56 (72) 91 Room Air 09/02/25 19:30 0.0 Alert and Oreinted x4, Vital signs are stable, In no acute distress, Dressing clean and dry, Distal neurovasc intact, Calves: soft bilaterally, Calves: non- tender bilat Lab Results: 09/03/25 0349 09/03/25 0349 Problem\Assessment\Plan Plan: -No further surgical plans this admission. Pending rehab facility placement (prefers [facility]) -NWB to RLE, WBAT to LLE in CAM boot. PT to see today-appreciate recs -Medicine consulting for comorbidity management. Appreciate recs. -Plan discussed in detail with Dr. Otero. REINALDO VALDEZ DPM Sep 03, 2025 07:08
[2025-09-03] MEDS: pantoprazole 40mg Tablet.DR PO SCH (08:31)
[2025-09-03] MEDS: MELOXICAM 7.5 MG TABLET PO SCH (08:33)
[2025-09-03] MEDS: fluticasone nasal spray 16GM bottle NS SCH (08:35)
[2025-09-03 08:38] LABS: CREATININE 1.38 MG/DL (0.40-0.90); eCRCL 41 ML/MIN; eGFR 39 ML/MIN
[2025-09-03] MEDS ORDERED: ipratropium/albuterol 3ml nebule NEB PRN (10:00)
[2025-09-03] MEDS ORDERED: albuterol 2.5 MG/3 ML nebule NEB PRN (10:00)
--- NOTE | 2025-09-03 10:02 | PROGRESS NOTE ---
Daily Progress Note Providers to CC ~ Antibiotic Timeout Antibiotic Ordered?: Yes Subjective No acute events overnight. Patient examined at bedside. No new complaints. Patient denies chest pain, sob, palpitations, abdominal pain, n/v/d. Vss, Cr downtrending on IVF otherwise unremarkable. Patient reports pain in surgical sites, b/l feet. Continued on supportive care. Objective Vital Signs Date Time Temp Pulse Resp B/P (MAP) Pulse Ox O2 Delivery O2 Flow Rate FiO2 09/03/25 08:36 16 94 09/03/25 02:00 97.8 55 103/56 (72) Room Air 09/02/25 19:30 0.0 Result Diagram: 09/03/25 0349 09/03/25 0820 Physical Exam General: Generalized weakness, A&Ox 3, NAD HEENT: Normocephalic, PERRLA Neck: Supple, trachea midline, no JVD Chest: Clear to auscultation bilaterally Cardiovascular: RRR, S1&S2 GI: Soft and nontender Extremities: Edematous b/l lower extremities INSPECTOR AND TESTER: CN II-XII intact, no focal deficits Musculoskeletal: No paraspinal muscle tenderness, no muscle spasm Skin: b/l lower extremity sutured closed Problem\Assessment\Plan 60 years old female with history of schizoaffective disorder, depression, bipolar, hypothyroidism, admitted for elective bilateral foot surgeries. S/P * Left foot hardware removal * Plantar midfoot saucerization and exostectomy * Peroneal tendon repair of the right side * Peroneal tendon anastomosis * Flexor hallucis longus long tendon transfer and that is all of the right foot and ankle -IVF, abx, supportive care, wound care consult Prerenal KIESHA on CKD3 -IVF Schizoaffective disorder, bipolar, Depression, hypothyroidism -continue home medication, follow tsh/t4 DVT/VTE Prophylaxis: heparin Code Status: Full Code Date of Service: Sep 03, 2025 Billing Provider: GRISELDA RICCI Common Visit Codes: [id number] INP/OBS CARE(HIGH) GRISELDA RICCI Sep 03, 2025 10:02
[2025-09-03] MEDS: normal saline 1000ml 1,000 ML IV SCH (11:45)
[2025-09-03] MEDS ORDERED: HYDROcodone/acetaminophen 5mg/325mg tablet PO PRN (14:50)
[2025-09-03] MEDS: HYDROcodone/acetaminophen 10/325mg tab PO PRN (20:47)
[2025-09-03] MEDS: heparin, porcine 5000 units/ml vial SQ SCH (20:51)
[2025-09-03] MEDS: albuterol 2.5 MG/3 ML nebule NEB PRN (21:01)
[2025-09-04] VITALS (8 sets, daily range): BP systolic 106–143; BP diastolic 53–80; PULSE 69–87; RESP 16–18; TEMP 97.4–98.3; O2SAT 95–96
[2025-09-04 06:31] LABS: MEAN PLATELET VOLUME 8.0 FL (7.4-10.4); RED CELL DISTRIBUTION WIDTH 13.7 % (11.5-14.5)
[2025-09-04 06:54] LABS: CREATININE 1.22 MG/DL (0.40-0.90); TOTAL CARBON DIOXIDE 26.6 MMOL/L (24-32); eCRCL 46 ML/MIN; eGFR 45 ML/MIN
--- NOTE | 2025-09-04 07:21 | PROGRESS NOTE ---
Ortho Clinic Progress Note History of Present Illness Allergies: Coded Allergies: quetiapine (Verified Allergy, Severe, anaphylaxis, 09/01/25) oxycodone (Verified Allergy, Unknown, 10/03/24) lorazepam (Verified Adverse Reaction, Severe, PSYCHOTIC EPISODES, 09/01/25) Social History Drug Use: None Pain Pain Present: Yes Verbalized Pain Intensity: 9 Location Location Modifier: Left, Right Pain Location: Foot Primary Aggravating Factor: Changing Position Subjective Now POD2 from RLE FHL transfer, peroneal tendon repair, LLE HWR/exostectomy. Doing well with respect to pain. Denies n/v/f/c/cp/sob. Objective Vital Signs Date Time Temp Pulse Resp B/P (MAP) Pulse Ox O2 Delivery O2 Flow Rate FiO2 09/04/25 05:28 18 09/03/25 22:00 98.0 88 99/42 (61) 92 Room Air 09/03/25 21:06 0.0 09/03/25 21:01 21 Alert and Oreinted x4, Appropriate, Vital signs are stable, In no acute distress, Dressing clean and dry, Wound clean and dry, Distal neurovasc intact, Calves: soft bilaterally Lab Results: 09/04/25 0538 09/04/25 0538 Problem\Assessment\Plan Assessment\Plan: Doing Well, Anticipate disch to rehab Plan: -Patient stable for discharge from surgical perspective. Awaiting rehab placement. Appreciate CM assistance. -Medicine consulting-appreciate recs -Continue NWB to the RLE, WBAT in CAM boot to the LLE. Please leave dressings c/d/i -Awaiting PT evaluation -Plan discussed with REINALDO Verde DPM Sep 04, 2025 07:21
--- NOTE | 2025-09-04 11:28 | PROGRESS NOTE ---
Daily Progress Note Providers to CC ~ Antibiotic Timeout Antibiotic Ordered?: Yes Subjective No acute events overnight. Patient examined at bedside. No new complaints. Patient denies chest pain, sob, palpitations, abdominal pain, n/v/d. Vss, Cr downtrending on IVF otherwise unremarkable. Patient reports pain in surgical sites, b/l feet. Continued on supportive care. Pending PT eval. Objective Vital Signs Date Time Temp Pulse Resp B/P (MAP) Pulse Ox O2 Delivery O2 Flow Rate FiO2 09/04/25 11:08 97.4 73 18 106/53 (70) 95 09/04/25 08:02 Room Air* 0 21 Result Diagram: 09/04/2538 09/04/25537 Physical Exam General: Generalized weakness, A&Ox 3, NAD HEENT: Normocephalic, PERRLA Neck: Supple, trachea midline, no JVD Chest: Clear to auscultation bilaterally Cardiovascular: RRR, S1&S2 GI: Soft and nontender Extremities: Edematous b/l lower extremities LEAD POURER: CN II-XII intact, no focal deficits Musculoskeletal: No paraspinal muscle tenderness, no muscle spasm Skin: b/l lower extremity sutured closed Problem\Assessment\Plan 60 years old female with history of schizoaffective disorder, depression, bipolar, hypothyroidism, admitted for elective bilateral foot surgeries. S/P * Left foot hardware removal * Plantar midfoot saucerization and exostectomy * Peroneal tendon repair of the right side * Peroneal tendon anastomosis * Flexor hallucis longus long tendon transfer and that is all of the right foot and ankle -IVF, abx, supportive care, wound care consult Prerenal KIESHA on CKD3 -IVF Schizoaffective disorder, bipolar, Depression, hypothyroidism -continue home medication, follow tsh/t4 DVT/VTE Prophylaxis: heparin Code Status: Full Code Date of Service: Sep 04, 2025 Billing Provider: GRISELDA RICCI Common Visit Codes: [id number] INP/OBS CARE(HIGH) GRISELDA RICCI Sep 04, 2025 11:28
[2025-09-04] MEDS: HYDROmorphone inj. 0.5 MG/0.5 ML DISP.SYRIN IV PRN ×2 (18:40→22:33)
[2025-09-05] VITALS (7 sets, daily range): BP systolic 95–150; BP diastolic 48–82; PULSE 65–84; RESP 14–16; TEMP 97.5–98.3; O2SAT 94–96
[2025-09-05 06:35] LABS: MEAN PLATELET VOLUME 7.7 FL (7.4-10.4); RED CELL DISTRIBUTION WIDTH 13.5 % (11.5-14.5)
[2025-09-05] MEDS: levoTHYROXINE 100mcg tablet PO SCH (06:51)
[2025-09-05 06:52] LABS: CREATININE 1.10 MG/DL (0.40-0.90); TOTAL CARBON DIOXIDE 28.9 MMOL/L (24-32); eCRCL 52 ML/MIN; eGFR 51 ML/MIN
--- NOTE | 2025-09-05 07:07 | PROGRESS NOTE ---
[facility]o Clinic Progress Note History of Present Illness Allergies: Coded Allergies: quetiapine (Verified Allergy, Severe, anaphylaxis, 09/01/25) lorazepam (Verified Adverse Reaction, Severe, PSYCHOTIC EPISODES, 09/01/25) Social History Drug Use: None Pain Pain Present: Yes Non-Verbal Pain Scale Used: None Verbalized Pain Intensity: 8 Location Location Modifier: Left, Right Pain Location: Foot Radiation Location: na Primary Aggravating Factor: Changing Position Subjective Shannen is doing otherwise well this am. Denies n/v/f/c/cp/sob with an improvement in pain compared to yesterday. Objective Vital Signs Date Time Temp Pulse Resp B/P (MAP) Pulse Ox O2 Delivery O2 Flow Rate FiO2 09/05/25 04:13 18 09/05/25 00:01 84 96 Room Air* 0 21 09/04/25 22:00 98.3 143/78 (99) Alert and Oreinted x4, Appropriate, Vital signs are stable, In no acute distress, Dressing clean and dry, Wound clean and dry, Distal neurovasc intact, Calves: soft bilaterally Lab Results: 09/05/25 0548 09/05/25 0548 Problem\Assessment\Plan Assessment\Plan: Doing Well, Cont. Physicial Therapy, Anticipate disch to rehab (Saturday) Plan: Stable for discharge from orthopaedic perspective. Awaiting rehab placement. continue PT while inpatient Medicine consulting for comorbidity management appreciate recs. Cr downtrending NWB to the RLE, WBAT to the LLE in CAM boot Follow up in the office in 1-[address] Otero. REINALDO VALDEZ DPM Sep 05, 2025 07:07
--- NOTE | 2025-09-05 07:13 | DISCHARGE SUMMARY ---
Discharge Summary Providers to CC ~ Discharge Summary Admission Diagnosis: s/p bilateral foot surgeries Hospital Course DATE OF ADMISSION: DATE OF DISCHARGE: Discharge Diagnosis\Comment: same as above Operations\Procedures: Left-Hardware removal, plantar midfoot exostectomy Right: Flexor hallucis longus transfer, peroneal tendon repair Consultants: medicine physical therapy Complications: none Condition on DC: Stable Discharge Summary: Patient was admitted postoperatively for pain control and placement for rehab given she is nonweightbearing on the right and did receive left sided surgery but can bear weight as tolerated. She underwent a Left sided HWR and plantar midfoot exostectomy and right sided flexor hallucis longus tendon transfer for a ruptured peroneus brevis and peroneus longus tendon. Her pain was well controlled throughout admission and medicine consulted for comorbidity management. She did have an uptrended Cr which was mitigated throughout her admission. She will follow up with Dr. Otero in the postoperative period in 1-2 weeks in the office and was instructed to keep her sterile dressings clean, dry, and intact. She will be discharged to a rehab facility in the interim. *Problems/Diagnosis: (1) Rupture of tendon of foot region Status: Resolved Total Time Spent on D/C: > 30 Minutes Counseling Services Smoking & Tobacco Cessation: 3-10 Minutes REINALDO VALDEZ DPM Sep 05, 2025 07:13
[2025-09-05 07:47] LABS: EOSINOPHILS % (MANUAL) 3.0 % (0-6); LYMPHOCYTES % (MANUAL) 30.0 % (21-51); MONOCYTES % (MANUAL) 9.0 % (2-12); NEUTROPHILS % (MANUAL) 58.0 % (42-75); PLATELET ESTIMATE NORMAL
--- NOTE | 2025-09-05 13:47 | PROGRESS NOTE ---
Daily Progress Note Providers to CC ~ Antibiotic Timeout Antibiotic Ordered?: Yes Subjective No acute events overnight. Patient examined at bedside. No new complaints. Patient denies chest pain, sob, palpitations, abdominal pain, n/v/d. Vss, Cr downtrending on IVF and otherwise unremarkable. Bilateral feet pain improving compared to prior days. Continued on supportive care. Pending PT eval. Objective Vital Signs Date Time Temp Pulse Resp B/P (MAP) Pulse Ox O2 Delivery O2 Flow Rate FiO2 09/05/25 11:13 97.5 76 16 95/48 (64) 95 Room Air 09/05/25 00:01 0 21 Result Diagram: 09/05/2548 09/05/25547 Physical Exam General: Generalized weakness, A&Ox 3, NAD HEENT: Normocephalic, PERRLA Neck: Supple, trachea midline, no JVD Chest: Clear to auscultation bilaterally Cardiovascular: RRR, S1&S2 GI: Soft and nontender Extremities: Edematous b/l lower extremities [employer] ASSEMBLER: CN II-XII intact, no focal deficits Musculoskeletal: No paraspinal muscle tenderness, no muscle spasm Skin: b/l lower extremity sutured closed Problem\Assessment\Plan 60 years old female with history of schizoaffective disorder, depression, bipolar, hypothyroidism, admitted for elective bilateral foot surgeries. S/P * Left foot hardware removal * Plantar midfoot saucerization and exostectomy * Peroneal tendon repair of the right side * Peroneal tendon anastomosis * Flexor hallucis longus long tendon transfer and that is all of the right foot and ankle -IVF, postop abx prophylaxis, supportive care, wound care consult Prerenal KIESHA on CKD3 -IVF Schizoaffective disorder, bipolar, Depression, hypothyroidism -continue home medication, follow tsh/t4 DVT/VTE Prophylaxis: heparin Code Status: Full Code Date of Service: Sep 05, 2025 Billing Provider: GRISELDA RICCI Common Visit Codes: [id number] INP/OBS CARE(MOD) GRISELDA RICCI Sep 05, 2025 13:47
[2025-09-05] MEDS: HYDROmorphone inj. 0.5 MG/0.5 ML DISP.SYRIN IV PRN (13:52)
[2025-09-05] MEDS: ceFAZolin/D5W- 1GM premix 50 ML IV SCH (17:14)
[2025-09-05] MEDS: magnesium hydroxide 30ml (MOM) UD suspension PO PRN (22:12)
[2025-09-06] VITALS (7 sets, daily range): BP systolic 151–164; BP diastolic 75–81; PULSE 72–85; RESP 14–18; TEMP 97.6–98.6; O2SAT 93–97
[2025-09-06 06:11] LABS: CREATININE 1.06 MG/DL (0.40-0.90); TOTAL CARBON DIOXIDE 26.5 MMOL/L (24-32); eCRCL 54 ML/MIN; eGFR 53 ML/MIN
[2025-09-06 06:21] LABS: MEAN PLATELET VOLUME 8.0 FL (7.4-10.4); RED CELL DISTRIBUTION WIDTH 12.8 % (11.5-14.5)
[2025-09-06 07:28] LABS: EOSINOPHILS % (MANUAL) 6.0 % (0-6); LYMPHOCYTES % (MANUAL) 23.0 % (21-51); MONOCYTES % (MANUAL) 12.0 % (2-12); NEUTROPHILS % (MANUAL) 59.0 % (42-75); PLATELET ESTIMATE DECREASED
--- NOTE | 2025-09-06 18:00 | PROGRESS NOTE ---
Daily Progress Note Providers to CC ~ Antibiotic Timeout Antibiotic Ordered?: Yes Subjective No acute events overnight. Patient examined at bedside. No new complaints. Patient denies chest pain, sob, palpitations, abdominal pain, n/v/d. Vss, Cr downtrending on IVF and otherwise unremarkable. Bilateral feet pain improving compared to prior days. Continued on supportive care. Pending rehab. 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 S/P * Left foot hardware removal * Plantar midfoot saucerization and exostectomy * Peroneal tendon repair of the right side * Peroneal tendon anastomosis * Flexor hallucis longus long tendon transfer and that is all of the right foot and ankle -IVF, postop abx prophylaxis, supportive care, wound care consult 09/06: pending rehab Prerenal KIESHA on CKD3 -IVF Schizoaffective disorder, bipolar, Depression, hypothyroidism -continue home medication, follow tsh/t4 DVT/VTE Prophylaxis: heparin Code Status: Full Code Date of Service: Sep 06, 2025 Billing Provider: GRISELDA RICCI Common Visit Codes: [id number] INP/OBS CARE(MOD) GRISELDA RICCI Sep 06, 2025 18:00
[2025-09-07 02:00] VITALS: BP 169/78; PULSE 69
[2025-09-07 02:09] VITALS: O2SAT 97
[2025-09-07 05:45] LABS: MEAN PLATELET VOLUME 7.8 FL (7.4-10.4); RED CELL DISTRIBUTION WIDTH 12.6 % (11.5-14.5)
[2025-09-07 05:48] LABS: CREATININE 1.02 MG/DL (0.40-0.90); TOTAL CARBON DIOXIDE 29.4 MMOL/L (24-32); eCRCL 56 ML/MIN; eGFR 55 ML/MIN
[2025-09-07 06:37] VITALS: BP 161/77; PULSE 68; RESP 17; TEMP 97.8; O2SAT 97
[2025-09-07 08:34] VITALS: PULSE 92; RESP 20; O2SAT 96
[2025-09-07 08:34] LABS: EOSINOPHILS % (MANUAL) 5.0 % (0-6); NEUTROPHILS % (MANUAL) 63.0 % (42-75)
[2025-09-07 08:35] LABS: LYMPHOCYTES % (MANUAL) 20.0 % (21-51); MONOCYTES % (MANUAL) 12.0 % (2-12); PLATELET ESTIMATE DECREASED
[2025-09-07 10:00] VITALS: BP 150/87; PULSE 86; RESP 16; TEMP 97.4; O2SAT 97
[2025-09-07 13:22] VITALS: RESP 16
--- NOTE | 2025-09-07 15:53 | PROGRESS NOTE ---
Daily Progress Note Providers to CC ~ Objective Vital Signs Date Time Temp Pulse Resp B/P (MAP) Pulse Ox O2 Delivery O2 Flow Rate FiO2 09/07/25 13:22 16 09/07/25 10:00 97.4 86 150/87 (108) 97 Room Air 09/07/25 08:34 0 21 Result Diagram: 09/07/2544209/07/25442 Problem\Assessment\Plan 60 years old female with history of schizoaffective disorder, depression, bipolar, hypothyroidism, admitted for elective bilateral foot surgeries. S/P * Left foot hardware removal * Plantar midfoot saucerization and exostectomy * Peroneal tendon repair of the right side * Peroneal tendon anastomosis * Flexor hallucis longus long tendon transfer and that is all of the right foot and ankle -IVF, postop abx prophylaxis, supportive care, wound care consult 09/06: pending rehab Prerenal KIESHA on CKD3 -IVF Schizoaffective disorder, bipolar, Depression, hypothyroidism -continue home medication, follow tsh/t4 DVT/VTE Prophylaxis: heparin Code Status: Full Code ALONZO MELTON MD Sep 07, 2025 15:53
--- NOTE | 2025-09-07 20:22 | DISCHARGE SUMMARY ---
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 Chronic kidney disease stage 3 Schizoaffective disorder, bipolar disorder, Depression, hypothyroidism Admission Diagnosis: s/p bilateral foot surgeries Admission Diagnosis Comment: S/P Left foot hardware removal * Plantar midfoot saucerization and exostectomy * Peroneal tendon repair of the right side * Peroneal tendon anastomosis * Flexor hallucis longus long tendon transfer and that is all of the right foot and ankle 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 Chronic kidney disease stage 3 Schizoaffective disorder, bipolar disorder, Depression, hypothyroidism Hospital Course DATE OF ADMISSION: September 02, 2025 DATE OF DISCHARGE: September 07, 2025 Discharge Diagnosis\Comment: S/P Left foot hardware removal * Plantar midfoot saucerization and exostectomy * Peroneal tendon repair of the right side * Peroneal tendon anastomosis * Flexor hallucis longus long tendon transfer and that is all of the right foot and ankle 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 Otero this evening. This is a hospitalist consultation as surgeon request. Patient underwent multiple bilateral foot surgery which includes * Left foot hardware removal. * Plantar midfoot saucerization and exostectomy. * Peroneal tendon repair of the right side. * Peroneal tendon anastomosis. * Flexor hallucis longus long tendon transfer and that is all of the right foot and ankle. Patient had history of schizoaffective disorder, bipolar disorder depression disorder, hypothyroidism, breast cancer, GI bleeding. She is living in [facility] living facility, I saw patient after surgery. She denied any chest pain, shortness of breaths, abdominal pain, nausea vomiting changing in bowel habits or urinary habits, fever chills. She reported the lower extremity pain is tolerable at this time. After admission patient was extensively evaluated treated today she is feeling fine , ready to be transferred to rehab facility, medication reconciled, today on physical exam Vital signs, stable ,afebrile. Pulse Oximetry reflects adequate oxygenation. General: well developed, well nourished. Awake , alert, and oriented x4, resting comfortably in the bed, in no acute distress . Skin: Warm, dry, no pallor, no rash or petechiae. HEENT: Atraumatic, normocephalic, EOMI, anicteric sclera B; pink conjunctiva; PERRLA, normal oropharynx, moist oral and nasal mucosa. Tympanic membrane , nose , throat clear. Neck: Trachea midline. Supple, full range of motion, no JVD, bruit , hepatojugular reflex , lymphadenopathy or masses, or other lesions Cardiac: Regular rhythm, regular rate no murmurs, rubs, or gallops. Normal S1 and S2, no S3 noticed. PMI is normal. Respiratory: Equal breath sounds bilaterally, no tachypnea; lungs clear to auscultation bilaterally, no wheezing ,rub or rales, or crackles. Chest wall is symmetric and without deformity. No signs of trauma. Chest wall is nontender. No signs of respiratory distress. Resonance is normal upon percussion bilaterally. Gastrointestinal: Abdomen symmetric, non-distended, soft, non-tender, normal bowel sounds x4 quadrant, normoactive, no hepatosplenomegaly , no masses , no bruit, no flank pain bilaterally. No voluntary guarding, rebound, or rigidity. No tenderness to percussion. No pulsatile masses. Equal femoral pulses. No Membreno's sign or McBurney point tenderness. Back; no CVA tenderness bilaterally, no deformities. Neck and back are without deformity as well. No tenderness noted on palpation of the spinous processes. Spinous processes are midline. Cervical, thoracic, and lumbar paraspinal muscles are not tender and are without spasm. Locally, dressing clean dry intact, neurovascular grossly intact Musculoskeletal: Extremities, normal range of motion, non-tender, muscle strength 5/5 x 4. Negative Homans signs bilaterally on lower extremity. Distal pulses full symmetrical, no clubbing, cyanosis , edema. Neurological: Speech is clear, alert, and oriented x 4. No motor or sensory deficit, deep tendon reflexes normal, cerebellar intact. Cranial nerves II-XII intact. Psych: Alert and or appropriate, normal affect. Vascular: Good distal pulses, which are equal x4; capillary refill less than 2 seconds. Lymphatic, no lymphadenopathy. *Problems/Diagnosis: (1) Rupture of tendon of foot region Status: Resolved Total Time Spent on D/C: > 30 Minutes Date of Service: Sep 07, 2025 Billing Provider: ALONZO MELTON MD Common Visit Codes: [id number] DISCH DAY >30min ALONZO MELTON MD Sep 07, 2025 20:22
== END 2025-09-07 15:50 | DRG 907 ==
LOC: PAS 12:22 → PAS IN 12:22 → SUR 3N 12:23 → EDSTATUS 14:30 → SUR 3N 20:00 → PAS 20:00
PROVIDERS: ADMIT Podiatrist Foot & Ankle Surgery; ATTEND Podiatrist Foot & Ankle Surgery
PROC: 0LXV0ZZ Transfer Right Foot Tendon, Open Approach (ICD-10-PCS; 2025-09-02)
PROC: 0L8N0ZZ Division of Right Lower Leg Tendon, Open Approach (ICD-10-PCS; 2025-09-02)
PROC: 0QBM0ZZ Excision of Left Tarsal, Open Approach (ICD-10-PCS; 2025-09-02)
PROC: 0QPM04Z Removal of Internal Fixation Device from Left Tarsal, Open Approach (ICD-10-PCS; principal; 2025-09-02 15:37)
DX: T85.618A Breakdown (mechanical) of other specified internal prosthetic devices, implants and grafts, initial encounter (principal); N17.0 Acute kidney failure with tubular necrosis; S86.311A Strain of muscle(s) and tendon(s) of peroneal muscle group at lower leg level, right leg, initial encounter; S99.811A Other specified injuries of right ankle, initial encounter; X58.XXXA Exposure to other specified factors, initial encounter; F25.9 Schizoaffective disorder, unspecified; S86.011A Strain of right Achilles tendon, initial encounter; E03.9 Hypothyroidism, unspecified; F31.9 Bipolar disorder, unspecified; N18.30 Chronic kidney disease, stage 3 unspecified; M25.371 Other instability, right ankle; Y83.8 Other surgical procedures as the cause of abnormal reaction of the patient, or of later complication, without mention of misadventure at the time of the procedure; Y93.89 Activity, other specified; Y92.89 Other specified places as the place of occurrence of the external cause; Z85.3 Personal history of malignant neoplasm of breast; Y99.8 Other external cause status
CPT/HCPCS: 36415; 73620; 76000; 80048; 80053; 81003; 82948; 84439; 84443; 85007; 85025; 87081; 93005; 94640; 94760; 97110; 97161; 97530; A4215; A4618; A6223; A6258; A6449; A7000; C1713; G0378; J0131; J0690; J1100; J1171; J1644; J2250; J2405; J2704; J3010; J3480; J3490; J7030; J7120